=== PATIENT | female | born 1945 | race Caucasian/White ===

== ENCOUNTER 2018-02-23 16:59 | Inpatient (IN) ==
[2018-02-23 17:38] LABS: Basophils % 0.1 % (0.0-0.8); Eosinophils % 0.2 % (0.00-10.9); Hemoglobin 11.1 GM/DL (12.0-16.0); Immature Granulocytes % 0.8 %; Lymphocytes # 2.4 10*3/uL (1.4-4.0); Lymphocytes % 18.1 % (21.3-54.2); Mean Corpuscular HGB Conc 33.6 GM/DL (32-36); Mean Corpuscular Hemoglobin 34 PG (27-34); Mean Corpuscular Volume 100.3 FL (87-102); Mean Platelet Volume 9.6 FL (9.6-12.0); Monocytes % 7.8 % (1.7-12.7); Neutrophils # 9.6 10*3/uL (1.4-7.4); Platelet Count 410 T/CUMM (130-400); Red Blood Count 3.29 MC/CUMM (3.8-5.5); Red Cell Distribution Width 12.2 % (9.3-17.3); White Blood Count 13.1 T/CUMM (4-12)
[2018-02-23 17:57] LABS: Albumin 2.8 G/DL (3.4-5.0); Bilirubin,Total 1.1 MG/DL (0.2-1.0); Calcium 9.9 MG/DL (8.5-10.1); Osmolality,Calculated 288.9 MOS/KG (273-304); Potassium 5.7 MMOL/L (3.5-5.1); Total Protein 7.1 G/DL (6.4-8.3)
[2018-02-23] MEDS ORDERED: cefTRIAXone 1,000 MG in SODIUM CHLORIDE 0.9% 100 ML IV STA (21:47)
[2018-02-23] MEDS ORDERED: FUROSEMIDE 100 MG/10 ML VIAL IV STA (21:47)
[2018-02-23] MEDS ORDERED: ONDANSETRON 4 MG/2 ML VIAL IV STA (21:47)
[2018-02-23] MEDS ORDERED: SODIUM CHLORIDE 0.9% 500 ML IV STA (21:47)
[2018-02-23] MEDS ORDERED: methylPREDNISolone SOD SUC 125 MG/2 ML VIAL IV STA (21:47)
[2018-02-23] MEDS ORDERED: CALCIUM CHLORIDE 1,000 MG/10 ML SYRINGE IV STA (21:50)
[2018-02-23] MEDS ORDERED: ALBUTEROL 2.5 MG/3 ML NEB RESP TX SCH (22:00)
[2018-02-23] MEDS ORDERED: AZITHROMYCIN INJ 500 MG in SODIUM CHLORIDE 0.9% 250 ML IV STA (22:12)
[2018-02-23 22:52] LABS: INR 0.9; PT Patient Result 9.9 SECS
[2018-02-23 23:05] LABS: Troponin I < 0.015 NG/ML (0.00-0.045)
[2018-02-23] MEDS ORDERED: DOXYCYCLINE HYCLATE INJ 100 MG in SODIUM CHLORIDE 0.9% 100 ML IV STA (23:28)
[2018-02-24 03:04] LABS: Apearance,Urine CLEAR (Clear); Bilirubin,Urine Negative (Negative); Blood, Urine Large mg/dL (Negative); Glucose,Urine (UA) Negative (Negative); Ketones,Urine Negative (Negative); Mucus,Urine Occasional /LPF (Occasional); Nitrite,Urine Negative (Negative); Protein,Urine 30 MG/DL; RBC,Urine 4 /HPF (0-4); Squamous Epithelial Cell,Urine Occasional /HPF (0-10); Urine Color Straw (Yellow); Urine Specific Gravity 1.004 (1.001-1.035); Urine Urobilinogen < 2.0 EU/DL (0.2-1.0); WBC,Urine 4 /HPF (0-6)
[2018-02-24] MEDS: HEPARIN 5,000 UNIT/1 ML VIAL SUBCUT SCH (03:37)
[2018-02-24] MEDS: SODIUM CHLORIDE 0.9% 1,000 ML IV SCH ×2 (04:23→15:27)
[2018-02-24] MEDS: cefTRIAXone 2,000 MG in SYRINGE 1 EACH IV SCH (05:15)
[2018-02-24] MEDS: ALBUTEROL/IPRATROPIUM 3 ML NEB RESP TX SCH ×4 (07:50→20:13)
[2018-02-24 08:03] LABS: Calcium 10.5 MG/DL (8.5-10.1); Osmolality,Calculated 301.2 MOS/KG (273-304); Potassium 5.3 MMOL/L (3.5-5.1)
[2018-02-24] MEDS: BENZONATATE 100 MG CAPSULE PO SCH ×3 (08:30→21:18)
[2018-02-24] MEDS ORDERED: SODIUM CHLORIDE 1 GM TABLET PO SCH (09:00)
[2018-02-24] MEDS: PANTOPRAZOLE 40 MG TABLET PO SCH (09:45)
[2018-02-24] MEDS: predniSONE 20 MG TABLET PO SCH ×2 (09:46→21:18)
[2018-02-24] MEDS: CARVEDILOL 3.125 MG TABLET PO SCH ×2 (09:46→21:18)
[2018-02-24 13:22] LABS: Calcium 9.5 MG/DL (8.5-10.1); Osmolality,Calculated 305.2 MOS/KG (273-304); Potassium 5.5 MMOL/L (3.5-5.1)
[2018-02-24] MEDS ORDERED: SODIUM POLYSTYRENE SULFATE 15 GM/60 ML BOTTLE PO STA (15:39)
[2018-02-24 17:41] LABS: Hepatitis A Ab IgM Quant 0.24 Index; Hepatitis A Ab IgM Result Negative (Negative); Hepatitis B Core IgM Quant 0.05 Index; Hepatitis B Core IgM Result Negative (Negative); Hepatitis B Surface Ag Quant < 0.10 Index; Hepatitis B Surface Ag Result Negative (Negative); Hepatitis C Virus Ab Quant 0.09 Index; Hepatitis C Virus Ab Result Negative (Negative)
[2018-02-24] MEDS: DOXYCYCLINE HYCLATE INJ 100 MG in SODIUM CHLORIDE 0.9% 100 ML IV SCH (18:02)
[2018-02-24 18:04] LABS: Apearance,Urine Slightly Hazy (Clear); Bacteria,Urine Occasional /HPF (Few); Bilirubin,Urine Negative (Negative); Blood, Urine Large mg/dL (Negative); Glucose,Urine (UA) 50 mg/dL (Negative); Ketones,Urine Negative (Negative); Nitrite,Urine Negative (Negative); Protein,Urine 30 MG/DL; RBC,Urine 22 /HPF (0-4); Squamous Epithelial Cell,Urine Occasional /HPF (0-10); Urine Color Yellow (Yellow); Urine Specific Gravity 1.009 (1.001-1.035); Urine Urobilinogen < 2.0 EU/DL (0.2-1.0); WBC,Urine 23 /HPF (0-6)
[2018-02-24 18:37] LABS: INR 0.9; Partial Thromboplastin Time 26.7 SECS (0-40)
[2018-02-25] MEDS: SODIUM CHLORIDE 0.9% 1,000 ML IV SCH ×3 (00:53→22:22)
[2018-02-25] MEDS: ACETAMINOPHEN 325 MG TABLET PO PRN (00:53)
[2018-02-25] MEDS ORDERED: PROMETHAZINE 25 MG/1 ML VIAL IM ONE (07:00)
[2018-02-25] MEDS ORDERED: MIDAZOLAM 2 MG/2 ML VIAL ONE (07:03)
[2018-02-25] MEDS: ALBUTEROL/IPRATROPIUM 3 ML NEB RESP TX SCH ×3 (07:10→15:30)
[2018-02-25 07:14] LABS: Albumin 2.4 G/DL (3.4-5.0); Bilirubin,Total 0.5 MG/DL (0.2-1.0); Calcium 9.4 MG/DL (8.5-10.1); Osmolality,Calculated 307.4 MOS/KG (273-304); Potassium 4.4 MMOL/L (3.5-5.1); Total Protein 5.9 G/DL (6.4-8.3)
[2018-02-25] MEDS ORDERED: LIDOCAINE 2% 20 ML VIAL RESP TX ONE (07:30)
[2018-02-25] MEDS ORDERED: MIDAZOLAM 2 MG/2 ML VIAL IV ONE (07:30)
[2018-02-25] MEDS ORDERED: LIDOCAINE 1% 20 ML VIAL MISC INJ ONE (07:30)
[2018-02-25] MEDS: PANTOPRAZOLE 40 MG TABLET PO SCH (10:33)
[2018-02-25] MEDS: CARVEDILOL 3.125 MG TABLET PO SCH ×2 (10:33→21:23)
[2018-02-25] MEDS: predniSONE 20 MG TABLET PO SCH ×2 (10:33→21:23)
[2018-02-25] MEDS: DOXYCYCLINE HYCLATE INJ 100 MG in SODIUM CHLORIDE 0.9% 100 ML IV SCH ×2 (10:34→21:23)
[2018-02-25] MEDS: cefTRIAXone 2,000 MG in SYRINGE 1 EACH IV SCH (10:34)
[2018-02-25] MEDS: BENZONATATE 100 MG CAPSULE PO SCH ×2 (10:34→21:23)
[2018-02-25] MEDS: ALBUTEROL 0.63 MG/3 ML NEB RESP TX SCH ×2 (15:29→19:14)
[2018-02-26] MEDS: ALBUTEROL 0.63 MG/3 ML NEB RESP TX SCH ×4 (00:01→19:04)
[2018-02-26 05:54] LABS: Osmolality,Calculated 307.1 MOS/KG (273-304); Potassium 4.4 MMOL/L (3.5-5.1)
[2018-02-26] MEDS: SODIUM CHLORIDE 0.9% 1,000 ML IV SCH (06:13)
[2018-02-26] MEDS ORDERED: SODIUM CHLORIDE 0.9% 1,000 ML IV SCH (09:31)
[2018-02-26] MEDS: CARVEDILOL 3.125 MG TABLET PO SCH ×2 (09:39→21:15)
[2018-02-26] MEDS: PANTOPRAZOLE 40 MG TABLET PO SCH (09:39)
[2018-02-26] MEDS: predniSONE 20 MG TABLET PO SCH ×2 (09:39→21:14)
[2018-02-26] MEDS: BENZONATATE 100 MG CAPSULE PO SCH ×2 (09:39→21:15)
[2018-02-26] MEDS: HEPARIN 5,000 UNIT/1 ML VIAL SUBCUT SCH ×2 (09:46→21:15)
[2018-02-26] MEDS: cefTRIAXone 2,000 MG in SYRINGE 1 EACH IV SCH (10:27)
[2018-02-26] MEDS: DOXYCYCLINE HYCLATE INJ 100 MG in SODIUM CHLORIDE 0.9% 100 ML IV SCH ×2 (10:37→21:16)
[2018-02-26 13:06] LABS: Myeloperoxidase Antibody > 8.0 U
[2018-02-26 16:56] LABS: Q Fever Phase II IgM <1:16 (<1:16)
[2018-02-27] MEDS: ALBUTEROL 0.63 MG/3 ML NEB RESP TX SCH ×4 (00:09→19:09)
[2018-02-27 04:56] LABS: Basophils % 0.1 % (0.0-0.8); Hematocrit 28.8 VOL% (35.7-47.0); Hemoglobin 9.6 GM/DL (12.0-16.0); Immature Granulocytes % 1.6 %; Immature Granulocytes Absolute 0.22 #; Lymphocytes # 1.6 10*3/uL (1.4-4.0); Lymphocytes % 11.6 % (21.3-54.2); Mean Corpuscular HGB Conc 33.3 GM/DL (32-36); Mean Corpuscular Hemoglobin 34 PG (27-34); Mean Corpuscular Volume 101.1 FL (87-102); Mean Platelet Volume 9.3 FL (9.6-12.0); Monocytes # 0.5 10*3/uL (0.11-0.8); Monocytes % 3.2 % (1.7-12.7); Neutrophils # 11.7 10*3/uL (1.4-7.4); Neutrophils % 83.5 % (38.7-73.9); Platelet Count 379 T/CUMM (130-400); Red Blood Count 2.85 MC/CUMM (3.8-5.5); Red Cell Distribution Width 12.3 % (9.3-17.3)
[2018-02-27 05:41] LABS: Calcium 9.1 MG/DL (8.5-10.1); Potassium 4.5 MMOL/L (3.5-5.1)
[2018-02-27] MEDS: cefTRIAXone 2,000 MG in SYRINGE 1 EACH IV SCH (08:26)
[2018-02-27] MEDS: DOXYCYCLINE HYCLATE INJ 100 MG in SODIUM CHLORIDE 0.9% 100 ML IV SCH ×2 (08:27→21:12)
[2018-02-27] MEDS: HEPARIN 5,000 UNIT/1 ML VIAL SUBCUT SCH ×2 (08:27→20:47)
[2018-02-27] MEDS: BENZONATATE 100 MG CAPSULE PO SCH ×2 (08:29→20:47)
[2018-02-27] MEDS: PANTOPRAZOLE 40 MG TABLET PO SCH (08:30)
[2018-02-27] MEDS: predniSONE 20 MG TABLET PO SCH (08:30)
[2018-02-27] MEDS: CARVEDILOL 3.125 MG TABLET PO SCH (08:30)
[2018-02-27] MEDS: FUROSEMIDE 40 MG TABLET PO SCH (10:38)
[2018-02-27] MEDS: CARVEDILOL 12.5 MG TABLET PO SCH (20:47)
[2018-02-27] MEDS: MELATONIN 3 MG TABLET PO PRN (20:48)
[2018-02-28] MEDS: ALBUTEROL 0.63 MG/3 ML NEB RESP TX SCH ×4 (00:56→20:17)
[2018-02-28 04:53] LABS: Basophils % 0.1 % (0.0-0.8); Eosinophils % 0.1 % (0.00-10.9); Hematocrit 28.1 VOL% (35.7-47.0); Hemoglobin 9.3 GM/DL (12.0-16.0); Immature Granulocytes % 2.3 %; Immature Granulocytes Absolute 0.33 #; Lymphocytes # 2.4 10*3/uL (1.4-4.0); Lymphocytes % 16.4 % (21.3-54.2); Mean Corpuscular HGB Conc 33.1 GM/DL (32-36); Mean Corpuscular Hemoglobin 33 PG (27-34); Mean Corpuscular Volume 100.7 FL (87-102); Mean Platelet Volume 9.4 FL (9.6-12.0); Monocytes # 1.5 10*3/uL (0.11-0.8); Monocytes % 10.6 % (1.7-12.7); NRBC # 0.02 10*3/uL; Neutrophils # 10.3 10*3/uL (1.4-7.4); Neutrophils % 70.5 % (38.7-73.9); Platelet Count 363 T/CUMM (130-400); Red Blood Count 2.79 MC/CUMM (3.8-5.5); Red Cell Distribution Width 12.1 % (9.3-17.3); White Blood Count 14.6 T/CUMM (4-12)
[2018-02-28 05:16] LABS: Calcium 9.2 MG/DL (8.5-10.1); Osmolality,Calculated 304.3 MOS/KG (273-304); Potassium 4.2 MMOL/L (3.5-5.1)
[2018-02-28] MEDS: ACETAMINOPHEN 325 MG TABLET PO PRN ×2 (06:17→23:54)
[2018-02-28] MEDS: cefTRIAXone 2,000 MG in SYRINGE 1 EACH IV SCH (08:43)
[2018-02-28] MEDS: DOXYCYCLINE HYCLATE INJ 100 MG in SODIUM CHLORIDE 0.9% 100 ML IV SCH ×2 (08:44→20:43)
[2018-02-28] MEDS: predniSONE 20 MG TABLET PO SCH (08:45)
[2018-02-28] MEDS: FUROSEMIDE 40 MG TABLET PO SCH (08:45)
[2018-02-28] MEDS: CARVEDILOL 12.5 MG TABLET PO SCH ×2 (08:46→20:43)
[2018-02-28] MEDS: BENZONATATE 100 MG CAPSULE PO SCH ×2 (08:46→20:42)
[2018-02-28] MEDS: PANTOPRAZOLE 40 MG TABLET PO SCH (08:46)
[2018-02-28] MEDS: HEPARIN 5,000 UNIT/1 ML VIAL SUBCUT SCH ×2 (08:53→20:43)
[2018-02-28] MEDS: MELATONIN 3 MG TABLET PO PRN (20:46)
[2018-03-01] MEDS: ALBUTEROL 0.63 MG/3 ML NEB RESP TX SCH ×2 (00:27→07:05)
[2018-03-01] MEDS: ACETAMINOPHEN 325 MG TABLET PO PRN (04:06)
[2018-03-01 04:14] LABS: Basophils % 0.1 % (0.0-0.8); Eosinophils % 0.1 % (0.00-10.9); Hematocrit 27.3 VOL% (35.7-47.0); Hemoglobin 9.5 GM/DL (12.0-16.0); Immature Granulocytes % 2.1 %; Immature Granulocytes Absolute 0.27 #; Lymphocytes # 2.4 10*3/uL (1.4-4.0); Lymphocytes % 18.8 % (21.3-54.2); Mean Corpuscular HGB Conc 34.8 GM/DL (32-36); Mean Corpuscular Hemoglobin 34 PG (27-34); Mean Corpuscular Volume 96.5 FL (87-102); Mean Platelet Volume 9.8 FL (9.6-12.0); Monocytes # 1.1 10*3/uL (0.11-0.8); Monocytes % 8.4 % (1.7-12.7); Neutrophils % 70.5 % (38.7-73.9); Platelet Count 390 T/CUMM (130-400); Red Blood Count 2.83 MC/CUMM (3.8-5.5); Red Cell Distribution Width 12.2 % (9.3-17.3); White Blood Count 12.7 T/CUMM (4-12)
[2018-03-01 04:46] LABS: Calcium 8.6 MG/DL (8.5-10.1); Potassium 4.1 MMOL/L (3.5-5.1)
[2018-03-01] MEDS ORDERED: DOXYCYCLINE HYCLATE 100 MG CAPSULE PO SCH (09:00)
[2018-03-01] MEDS: PANTOPRAZOLE 40 MG TABLET PO SCH (09:18)
[2018-03-01] MEDS: FUROSEMIDE 40 MG TABLET PO SCH (09:18)
[2018-03-01] MEDS: BENZONATATE 100 MG CAPSULE PO SCH (09:18)
[2018-03-01] MEDS: predniSONE 20 MG TABLET PO SCH (09:19)
[2018-03-01] MEDS: CARVEDILOL 12.5 MG TABLET PO SCH (09:19)
[2018-03-01] MEDS: HEPARIN 5,000 UNIT/1 ML VIAL SUBCUT SCH (09:20)
[2018-03-01 12:04] VITALS: BP 138/91
[2018-03-04 12:54] LABS: c-ANCA Negative (Negative); p-ANCA Positive (Negative)
== END 2018-03-01 12:15 | disposition home or self-care (01) | DRG 987 ==
LOC: N.ED 16:59 → SUATTDRO 22:33 → N.EDINP 22:33 → N.2E 02-24 03:55 → N.3W 02-24 03:55 → N.2E 02-24 04:23
PROVIDERS: ADMIT Internal Medicine; ATTEND Internal Medicine

== ENCOUNTER 2018-04-16 17:15 | Inpatient (IN) ==
[2018-04-16] MEDS ORDERED: METOCLOPRAMIDE 10 MG/2 ML VIAL IV STA (18:21)
[2018-04-16] MEDS ORDERED: ONDANSETRON 4 MG/2 ML VIAL IV STA (18:21)
[2018-04-16 18:46] LABS: ABG Base Excess -3.7 MMOL/L (-2.5-2.5); ABG HCO3 21.3 MMOL/L (20-26); ABG Oxygen Saturation 96.7 % (95-100); ABG PCO2 30.6 MM HG (35-48); ABG PH 7.423 (7.35-7.45); ABG PO2 84.2 MM HG (80-95); ABG TCO2 18.2 MMOL/L (23-27)
[2018-04-16 19:29] LABS: Basophils % 0.1 % (0.0-0.8); Eosinophils % 0.2 % (0.00-10.9); Hematocrit 25.7 VOL% (35.7-47.0); Immature Granulocytes % 0.6 %; Immature Granulocytes Absolute 0.06 #; Lymphocytes % 20.2 % (21.3-54.2); Mean Corpuscular Hemoglobin 33 PG (27-34); Mean Corpuscular Volume 94.8 FL (87-102); Mean Platelet Volume 9.4 FL (9.6-12.0); Monocytes # 0.8 10*3/uL (0.11-0.8); Monocytes % 8.1 % (1.7-12.7); Neutrophils % 70.8 % (38.7-73.9); Platelet Count 335 T/CUMM (130-400); Red Blood Count 2.71 MC/CUMM (3.8-5.5); White Blood Count 9.9 T/CUMM (4-12)
[2018-04-16 19:39] LABS: INR 0.9; PT Patient Result 9.4 SECS; Partial Thromboplastin Time 23.5 SECS (0-40)
[2018-04-16 19:52] LABS: Alanine Aminotransferase 19 U/L (13-56); Albumin 2.7 G/DL (3.4-5.0); Alkaline Phosphatase 50 U/L (45-117); Aspartate Amino Transferase 18 U/L (0-37); Bilirubin,Total < 0.39 MG/DL (0.2-1.0); Blood Urea Nitrogen 77 MG/DL (7-18); Calcium 8.4 MG/DL (8.5-10.1); Glucose 116 MG/DL (74-106); Osmolality,Calculated 280.1 MOS/KG (273-304); Potassium 5.1 MMOL/L (3.5-5.1); Sodium 128 MMOL/L (136-145); Total Protein 6.2 G/DL (6.4-8.3); Troponin I < 0.015 NG/ML (0.00-0.045)
[2018-04-16] MEDS ORDERED: ONDANSETRON 4 MG/2 ML VIAL IV PRN (21:56)
[2018-04-16] MEDS ORDERED: SODIUM CHLORIDE 0.9% 1,000 ML IV SCH (21:56)
[2018-04-16 23:11] LABS: Alanine Aminotransferase 18 U/L (13-56); Albumin 2.9 G/DL (3.4-5.0); Alkaline Phosphatase 52 U/L (45-117); Aspartate Amino Transferase 15 U/L (0-37); Bilirubin,Total < 0.39 MG/DL (0.2-1.0); Blood Urea Nitrogen 74 MG/DL (7-18); Calcium 8.9 MG/DL (8.5-10.1); Glucose 103 MG/DL (74-106); Osmolality,Calculated 279.9 MOS/KG (273-304); Potassium 4.6 MMOL/L (3.5-5.1); Sodium 129 MMOL/L (136-145); Total Protein 6.4 G/DL (6.4-8.3)
[2018-04-16] MEDS: FAMOTIDINE 20 MG TABLET PO SCH (23:16)
[2018-04-16] MEDS: CARVEDILOL 6.25 MG TABLET PO SCH (23:16)
[2018-04-16] MEDS: HEPARIN 5,000 UNIT/1 ML VIAL SUBCUT SCH (23:39)
[2018-04-17 04:36] LABS: Apearance,Urine CLEAR (Clear); Bacteria,Urine Occasional /HPF (Few); Bilirubin,Urine Negative (Negative); Blood, Urine Moderate mg/dL (Negative); Glucose,Urine (UA) Negative (Negative); Ketones,Urine Negative (Negative); Mucus,Urine Occasional /LPF (Occasional); Nitrite,Urine Negative (Negative); Protein,Urine 100 MG/DL; RBC,Urine 4 /HPF (0-4); Urine Color Straw (Yellow); Urine Specific Gravity 1.004 (1.001-1.035); Urine Urobilinogen < 2.0 EU/DL (0.2-1.0); WBC,Urine 2 /HPF (0-6)
[2018-04-17 05:18] LABS: Basophils % 0.1 % (0.0-0.8); Eosinophils # 0.1 10*3/uL (0.0-0.87); Eosinophils % 1.3 % (0.00-10.9); Hematocrit 22.2 VOL% (35.7-47.0); Hemoglobin 7.5 GM/DL (12.0-16.0); Immature Granulocytes % 0.6 %; Immature Granulocytes Absolute 0.05 #; Lymphocytes # 2.3 10*3/uL (1.4-4.0); Lymphocytes % 28.2 % (21.3-54.2); Mean Corpuscular HGB Conc 33.8 GM/DL (32-36); Mean Corpuscular Hemoglobin 32 PG (27-34); Mean Corpuscular Volume 95.7 FL (87-102); Mean Platelet Volume 9.8 FL (9.6-12.0); Monocytes # 1.1 10*3/uL (0.11-0.8); Monocytes % 13.3 % (1.7-12.7); Neutrophils # 4.7 10*3/uL (1.4-7.4); Neutrophils % 56.5 % (38.7-73.9); Platelet Count 302 T/CUMM (130-400); Red Blood Count 2.32 MC/CUMM (3.8-5.5); Red Cell Distribution Width 12.2 % (9.3-17.3); White Blood Count 8.3 T/CUMM (4-12)
[2018-04-17] MEDS: HEPARIN 5,000 UNIT/1 ML VIAL SUBCUT SCH (06:56)
[2018-04-17] MEDS: CARVEDILOL 6.25 MG TABLET PO SCH ×3 (08:32→16:01)
[2018-04-17] MEDS: FAMOTIDINE 20 MG TABLET PO SCH ×2 (08:32→20:48)
[2018-04-17] MEDS ORDERED: MAGNESIUM HYDROXIDE SUSP 30 ML UDCUP PO PRN (08:37)
[2018-04-17] MEDS ORDERED: ALUMINUM/MAGNES/SIMETH MAX STR 30 ML UDCUP PO PRN (08:37)
[2018-04-17] MEDS ORDERED: hydrALAZINE 20 MG/1 ML VIAL IV PRN (08:38)
[2018-04-17] MEDS: amLODIPine 5 MG TABLET PO SCH (08:53)
[2018-04-17] MEDS: predniSONE 20 MG TABLET PO SCH (08:53)
[2018-04-17] MEDS ORDERED: ENOXAPARIN 30 MG/0.3 ML SYRINGE SUBCUT SCH (09:00)
[2018-04-17] MEDS ORDERED: predniSONE 10 MG TABLET PO SCH (09:00)
[2018-04-17] MEDS ORDERED: INFLUENZA VIRUS VACCINE 0.5 ML SYRINGE IM ONE (09:00)
[2018-04-17] MEDS: SODIUM BICARB INJ 50 MEQ in DEXTROSE 5% 1,000 ML IV SCH ×2 (13:07→23:53)
[2018-04-17 13:29] LABS: % Iron Saturation 18.6 % (18-50); Ferritin 200.9 ng/ml (8-252)
[2018-04-17 13:38] LABS: Folate 14.6 NG/ML (5.4-24.0)
[2018-04-17] MEDS ORDERED: CYANOCOBALAMIN 1000 MCG/1 ML VIAL IM ONE (14:37)
[2018-04-18 06:23] LABS: Basophils % 0.1 % (0.0-0.8); Eosinophils % 0.4 % (0.00-10.9); Hematocrit 21.8 VOL% (35.7-47.0); Hemoglobin 7.4 GM/DL (12.0-16.0); Immature Granulocytes % 0.7 %; Immature Granulocytes Absolute 0.07 #; Lymphocytes # 2.4 10*3/uL (1.4-4.0); Lymphocytes % 23.2 % (21.3-54.2); Mean Corpuscular HGB Conc 33.9 GM/DL (32-36); Mean Corpuscular Hemoglobin 32 PG (27-34); Mean Corpuscular Volume 94.4 FL (87-102); Mean Platelet Volume 9.7 FL (9.6-12.0); Monocytes # 1.1 10*3/uL (0.11-0.8); Monocytes % 10.7 % (1.7-12.7); Neutrophils # 6.8 10*3/uL (1.4-7.4); Neutrophils % 64.9 % (38.7-73.9); Platelet Count 307 T/CUMM (130-400); Red Blood Count 2.31 MC/CUMM (3.8-5.5); Red Cell Distribution Width 12.1 % (9.3-17.3); White Blood Count 10.5 T/CUMM (4-12)
[2018-04-18 06:40] LABS: Calcium 8.4 MG/DL (8.5-10.1); Osmolality,Calculated 286.4 MOS/KG (273-304); Potassium 4.2 MMOL/L (3.5-5.1)
[2018-04-18 08:11] LABS: Free T4 (Free Thyroxine) 0.83 NG/DL (0.76-1.46); Thyroid Stimulating Hormone 2.07 uIU/ml (0.358-3.74)
[2018-04-18] MEDS ORDERED: MAGNESIUM SULF RIDER 2 GM in PREMIX 1 EACH IV ONE (08:16)
[2018-04-18] MEDS ORDERED: IRON SUCROSE 300 MG in SODIUM CHLORIDE 0.9% 100 ML IV ONE (08:22)
[2018-04-18] MEDS: FAMOTIDINE 20 MG TABLET PO SCH ×3 (08:31→23:43)
[2018-04-18] MEDS: predniSONE 20 MG TABLET PO SCH (08:31)
[2018-04-18] MEDS: amLODIPine 5 MG TABLET PO SCH (08:31)
[2018-04-18] MEDS: ACETAMINOPHEN 325 MG TABLET PO PRN ×2 (08:31→19:49)
[2018-04-18] MEDS: CARVEDILOL 6.25 MG TABLET PO SCH ×2 (08:32→16:01)
[2018-04-18] MEDS: FLUTICASONE 50 MCG NASAL SPRAY 16 GM BOTTLE BOTH NARES SCH (09:18)
[2018-04-18] MEDS ORDERED: EPOETIN ALFA 10,000 UNIT/1 ML VIAL IV ONE (09:29)
[2018-04-18 12:18] LABS: Apearance,Urine CLEAR (Clear); Bacteria,Urine Occasional /HPF (Few); Bilirubin,Urine Negative (Negative); Blood, Urine Moderate mg/dL (Negative); Glucose,Urine (UA) Negative (Negative); Ketones,Urine Negative (Negative); Nitrite,Urine Negative (Negative); Protein,Urine >=500 MG/DL; RBC,Urine 3 /HPF (0-4); Squamous Epithelial Cell,Urine Occasional /HPF (0-10); Transitional Epi Cells,Urine Occasional /HPF (<1); Urine Color Straw (Yellow); Urine Specific Gravity 1.004 (1.001-1.035); Urine Urobilinogen < 2.0 EU/DL (0.2-1.0); WBC,Urine 10 /HPF (0-6)
[2018-04-19] MEDS: ACETAMINOPHEN 325 MG TABLET PO PRN ×2 (03:34→17:18)
[2018-04-19 05:32] LABS: Basophils % 0.1 % (0.0-0.8); Eosinophils % 0.1 % (0.00-10.9); Hemoglobin 7.7 GM/DL (12.0-16.0); Immature Granulocytes % 1.2 %; Immature Granulocytes Absolute 0.15 #; Lymphocytes # 2.7 10*3/uL (1.4-4.0); Lymphocytes % 22.1 % (21.3-54.2); Mean Corpuscular HGB Conc 33.5 GM/DL (32-36); Mean Corpuscular Hemoglobin 32 PG (27-34); Mean Corpuscular Volume 94.3 FL (87-102); Mean Platelet Volume 9.8 FL (9.6-12.0); Monocytes # 1.2 10*3/uL (0.11-0.8); Monocytes % 9.9 % (1.7-12.7); Neutrophils % 66.6 % (38.7-73.9); Platelet Count 328 T/CUMM (130-400); Red Blood Count 2.44 MC/CUMM (3.8-5.5)
[2018-04-19 05:54] LABS: Calcium 8.1 MG/DL (8.5-10.1); Osmolality,Calculated 279.8 MOS/KG (273-304); Potassium 4.3 MMOL/L (3.5-5.1)
[2018-04-19] MEDS: predniSONE 20 MG TABLET PO SCH (09:27)
[2018-04-19] MEDS: amLODIPine 5 MG TABLET PO SCH ×2 (09:28→20:26)
[2018-04-19] MEDS: FAMOTIDINE 20 MG TABLET PO SCH (09:28)
[2018-04-19] MEDS: SODIUM BICARB INJ 50 MEQ in DEXTROSE 5% 1,000 ML IV SCH ×2 (09:28→09:32)
[2018-04-19] MEDS: CARVEDILOL 6.25 MG TABLET PO SCH ×2 (09:28→17:14)
[2018-04-19] MEDS: FLUTICASONE 50 MCG NASAL SPRAY 16 GM BOTTLE BOTH NARES SCH (09:31)
[2018-04-19] MEDS ORDERED: SODIUM CHLORIDE 0.9% 1,000 ML IV PRN (15:50)
[2018-04-19] MEDS: SODIUM CHLORIDE 0.9% 1,000 ML IV SCH (20:08)
[2018-04-19] MEDS: hydrALAZINE 25 MG TABLET PO SCH (20:26)
[2018-04-20 04:57] LABS: Basophils % 0.1 % (0.0-0.8); Eosinophils % 0.1 % (0.00-10.9); Hematocrit 27.4 VOL% (35.7-47.0); Hemoglobin 9.6 GM/DL (12.0-16.0); Immature Granulocytes % 1.3 %; Lymphocytes # 3.3 10*3/uL (1.4-4.0); Lymphocytes % 21.6 % (21.3-54.2); Mean Corpuscular Hemoglobin 32 PG (27-34); Mean Corpuscular Volume 91.9 FL (87-102); Mean Platelet Volume 9.5 FL (9.6-12.0); Monocytes # 1.8 10*3/uL (0.11-0.8); Monocytes % 11.9 % (1.7-12.7); NRBC # 0.02 10*3/uL; Neutrophils # 9.9 10*3/uL (1.4-7.4); Platelet Count 372 T/CUMM (130-400); Red Blood Count 2.98 MC/CUMM (3.8-5.5); Red Cell Distribution Width 12.9 % (9.3-17.3); White Blood Count 15.3 T/CUMM (4-12)
[2018-04-20 05:50] LABS: Calcium 8.7 MG/DL (8.5-10.1); Osmolality,Calculated 270.5 MOS/KG (273-304); Potassium 4.4 MMOL/L (3.5-5.1)
[2018-04-20] MEDS: CARVEDILOL 6.25 MG TABLET PO SCH ×2 (09:46→17:08)
[2018-04-20] MEDS: amLODIPine 5 MG TABLET PO SCH ×2 (09:46→20:55)
[2018-04-20] MEDS: predniSONE 20 MG TABLET PO SCH (09:46)
[2018-04-20] MEDS: FAMOTIDINE 20 MG TABLET PO SCH (09:46)
[2018-04-20] MEDS: hydrALAZINE 25 MG TABLET PO SCH ×3 (09:47→20:55)
[2018-04-20] MEDS: FLUTICASONE 50 MCG NASAL SPRAY 16 GM BOTTLE BOTH NARES SCH (09:49)
[2018-04-20] MEDS: SODIUM CHLORIDE 0.9% 1,000 ML IV SCH ×2 (10:35→15:26)
[2018-04-20] MEDS ORDERED: PANTOPRAZOLE 40 MG TABLET PO ONE (20:00)
[2018-04-20] MEDS: ACETAMINOPHEN 325 MG TABLET PO PRN (20:55)
[2018-04-21] MEDS: BUTALBITAL/ACETAMIN/CAFFEINE 50-325-40 MG TABLET PO PRN (02:18)
[2018-04-21] MEDS: SODIUM CHLORIDE 0.65% NASAL SPRAY 45 ML BOTTLE BOTH NARES PRN (02:19)
[2018-04-21] MEDS: SODIUM CHLORIDE 0.9% 1,000 ML IV SCH ×2 (08:03→08:41)
[2018-04-21] MEDS: predniSONE 20 MG TABLET PO SCH (08:39)
[2018-04-21] MEDS: CARVEDILOL 6.25 MG TABLET PO SCH ×2 (08:39→16:02)
[2018-04-21] MEDS: amLODIPine 5 MG TABLET PO SCH ×2 (08:39→21:09)
[2018-04-21] MEDS: FAMOTIDINE 20 MG TABLET PO SCH (08:39)
[2018-04-21] MEDS: PANTOPRAZOLE 40 MG TABLET PO SCH (08:39)
[2018-04-21] MEDS: FLUTICASONE 50 MCG NASAL SPRAY 16 GM BOTTLE BOTH NARES SCH (08:39)
[2018-04-21] MEDS: hydrALAZINE 25 MG TABLET PO SCH ×3 (08:39→21:09)
[2018-04-21 14:34] LABS: Calcium 8.4 MG/DL (8.5-10.1); Osmolality,Calculated 274.5 MOS/KG (273-304); Potassium 4.5 MMOL/L (3.5-5.1)
[2018-04-21] MEDS: IPRATROPIUM 0.03% NASAL SPRAY 30 ML BOTTLE BOTH NARES SCH (21:09)
[2018-04-21] MEDS: ACETAMINOPHEN 325 MG TABLET PO PRN (21:15)
[2018-04-22] MEDS: BUTALBITAL/ACETAMIN/CAFFEINE 50-325-40 MG TABLET PO PRN ×2 (01:07→06:13)
[2018-04-22 05:12] LABS: Basophils % 0.1 % (0.0-0.8); Eosinophils % 0.1 % (0.00-10.9); Hematocrit 27.5 VOL% (35.7-47.0); Hemoglobin 9.4 GM/DL (12.0-16.0); Immature Granulocytes % 1.5 %; Immature Granulocytes Absolute 0.21 #; Lymphocytes % 22.3 % (21.3-54.2); Mean Corpuscular HGB Conc 34.2 GM/DL (32-36); Mean Corpuscular Hemoglobin 32 PG (27-34); Mean Corpuscular Volume 93.5 FL (87-102); Mean Platelet Volume 9.8 FL (9.6-12.0); Monocytes # 1.5 10*3/uL (0.11-0.8); Monocytes % 10.6 % (1.7-12.7); Neutrophils # 8.9 10*3/uL (1.4-7.4); Neutrophils % 65.4 % (38.7-73.9); Platelet Count 416 T/CUMM (130-400); Red Blood Count 2.94 MC/CUMM (3.8-5.5); Red Cell Distribution Width 13.1 % (9.3-17.3); White Blood Count 13.6 T/CUMM (4-12)
[2018-04-22 05:32] LABS: Calcium 7.7 MG/DL (8.5-10.1); Osmolality,Calculated 268.6 MOS/KG (273-304); Potassium 4.8 MMOL/L (3.5-5.1)
[2018-04-22] MEDS ORDERED: MAGNESIUM SULF RIDER 4 GM in PREMIX 1 EACH IV PRN (08:46)
[2018-04-22] MEDS ORDERED: MAGNESIUM SULF RIDER 2 GM in PREMIX 1 EACH IV PRN (08:46)
[2018-04-22] MEDS: FAMOTIDINE 20 MG TABLET PO SCH (09:05)
[2018-04-22] MEDS: PANTOPRAZOLE 40 MG TABLET PO SCH (09:05)
[2018-04-22] MEDS: predniSONE 20 MG TABLET PO SCH (09:05)
[2018-04-22] MEDS: amLODIPine 5 MG TABLET PO SCH ×2 (09:05→20:56)
[2018-04-22] MEDS: CARVEDILOL 6.25 MG TABLET PO SCH ×2 (09:05→16:01)
[2018-04-22] MEDS: hydrALAZINE 25 MG TABLET PO SCH ×3 (09:05→20:55)
[2018-04-22] MEDS: FLUTICASONE 50 MCG NASAL SPRAY 16 GM BOTTLE BOTH NARES SCH (09:06)
[2018-04-22] MEDS: IPRATROPIUM 0.03% NASAL SPRAY 30 ML BOTTLE BOTH NARES SCH ×2 (09:06→20:55)
[2018-04-22] MEDS: SODIUM CHLORIDE 0.9% 1,000 ML IV SCH (14:28)
[2018-04-23] MEDS: BUTALBITAL/ACETAMIN/CAFFEINE 50-325-40 MG TABLET PO PRN ×2 (01:43→23:39)
[2018-04-23 06:23] LABS: Osmolality,Calculated 275.4 MOS/KG (273-304); Potassium 4.6 MMOL/L (3.5-5.1)
[2018-04-23] MEDS: FAMOTIDINE 20 MG TABLET PO SCH (09:45)
[2018-04-23] MEDS: predniSONE 20 MG TABLET PO SCH (09:46)
[2018-04-23] MEDS: CARVEDILOL 6.25 MG TABLET PO SCH ×2 (09:46→17:24)
[2018-04-23] MEDS: PANTOPRAZOLE 40 MG TABLET PO SCH (09:46)
[2018-04-23] MEDS: amLODIPine 5 MG TABLET PO SCH ×2 (09:46→20:00)
[2018-04-23] MEDS: hydrALAZINE 25 MG TABLET PO SCH ×3 (09:51→20:00)
[2018-04-23] MEDS: FLUTICASONE 50 MCG NASAL SPRAY 16 GM BOTTLE BOTH NARES SCH (09:52)
[2018-04-23] MEDS: IPRATROPIUM 0.03% NASAL SPRAY 30 ML BOTTLE BOTH NARES SCH ×2 (09:52→20:22)
[2018-04-23] MEDS: SODIUM CHLORIDE 0.9% 1,000 ML IV SCH (11:22)
[2018-04-23] MEDS ORDERED: LORazepam 0.5 MG TABLET PO PRN (11:44)
[2018-04-23 14:44] LABS: Apearance,Urine Slightly Hazy (Clear); Bacteria,Urine Occasional /HPF (Few); Bilirubin,Urine Negative (Negative); Blood, Urine Moderate mg/dL (Negative); Glucose,Urine (UA) Negative (Negative); Ketones,Urine Negative (Negative); Nitrite,Urine Negative (Negative); Protein,Urine >=500 MG/DL; RBC,Urine 5 /HPF (0-4); Squamous Epithelial Cell,Urine Occasional /HPF (0-10); Urine Color Straw (Yellow); Urine Specific Gravity 1.005 (1.001-1.035); Urine Urobilinogen < 2.0 EU/DL (0.2-1.0); WBC,Urine 2 /HPF (0-6)
[2018-04-24] MEDS: BUTALBITAL/ACETAMIN/CAFFEINE 50-325-40 MG TABLET PO PRN (05:52)
[2018-04-24] MEDS: SODIUM CHLORIDE 0.9% 1,000 ML IV SCH (05:53)
[2018-04-24] MEDS: CARVEDILOL 6.25 MG TABLET PO SCH ×2 (08:51→16:37)
[2018-04-24] MEDS: hydrALAZINE 25 MG TABLET PO SCH ×3 (08:51→21:24)
[2018-04-24] MEDS: predniSONE 20 MG TABLET PO SCH (08:52)
[2018-04-24] MEDS: PANTOPRAZOLE 40 MG TABLET PO SCH (08:52)
[2018-04-24] MEDS: amLODIPine 5 MG TABLET PO SCH ×2 (08:52→21:24)
[2018-04-24] MEDS: FLUTICASONE 50 MCG NASAL SPRAY 16 GM BOTTLE BOTH NARES SCH (08:57)
[2018-04-24] MEDS: SODIUM CHLORIDE 0.65% NASAL SPRAY 45 ML BOTTLE BOTH NARES PRN (08:57)
[2018-04-24] MEDS ORDERED: RITUXIMAB IV ONE (09:00)
[2018-04-24] MEDS ORDERED: SODIUM CHLORIDE 0.9% IV ONE (09:00)
[2018-04-24] MEDS: FAMOTIDINE 20 MG TABLET PO SCH (09:01)
[2018-04-24] MEDS: IPRATROPIUM 0.03% NASAL SPRAY 30 ML BOTTLE BOTH NARES SCH ×2 (09:01→23:33)
[2018-04-24 12:27] LABS: Calcium 8.4 MG/DL (8.5-10.1); Osmolality,Calculated 284.9 MOS/KG (273-304); Potassium 4.5 MMOL/L (3.5-5.1)
[2018-04-24 16:56] LABS: Myeloperoxidase Antibody > 8.0 U
[2018-04-24] MEDS: ACETAMINOPHEN 325 MG TABLET PO PRN (21:23)
[2018-04-25] MEDS: IPRATROPIUM 0.03% NASAL SPRAY 30 ML BOTTLE BOTH NARES SCH ×3 (00:41→20:41)
[2018-04-25] MEDS: BUTALBITAL/ACETAMIN/CAFFEINE 50-325-40 MG TABLET PO PRN (00:42)
[2018-04-25] MEDS: SODIUM CHLORIDE 0.9% 1,000 ML IV SCH ×2 (03:42→22:53)
[2018-04-25 04:09] LABS: Basophils % 0.2 % (0.0-0.8); Eosinophils % 0.1 % (0.00-10.9); Hemoglobin 9.8 GM/DL (12.0-16.0); Immature Granulocytes Absolute 0.26 #; Mean Corpuscular HGB Conc 33.8 GM/DL (32-36); Mean Corpuscular Hemoglobin 32 PG (27-34); Mean Corpuscular Volume 95.4 FL (87-102); Mean Platelet Volume 9.4 FL (9.6-12.0); Monocytes # 1.3 10*3/uL (0.11-0.8); Monocytes % 9.6 % (1.7-12.7); Neutrophils # 9.6 10*3/uL (1.4-7.4); Neutrophils % 73.1 % (38.7-73.9); Platelet Count 394 T/CUMM (130-400); Red Blood Count 3.04 MC/CUMM (3.8-5.5); Red Cell Distribution Width 13.3 % (9.3-17.3); White Blood Count 13.1 T/CUMM (4-12)
[2018-04-25 04:36] LABS: Calcium 8.1 MG/DL (8.5-10.1); Osmolality,Calculated 282.9 MOS/KG (273-304); Potassium 4.4 MMOL/L (3.5-5.1)
[2018-04-25] MEDS: FAMOTIDINE 20 MG TABLET PO SCH (09:34)
[2018-04-25] MEDS: predniSONE 20 MG TABLET PO SCH (09:34)
[2018-04-25] MEDS: CARVEDILOL 6.25 MG TABLET PO SCH ×2 (09:34→17:16)
[2018-04-25] MEDS: hydrALAZINE 25 MG TABLET PO SCH ×3 (09:34→22:55)
[2018-04-25] MEDS: amLODIPine 5 MG TABLET PO SCH ×2 (09:35→20:43)
[2018-04-25] MEDS: SODIUM CHLORIDE 0.65% NASAL SPRAY 45 ML BOTTLE BOTH NARES PRN (09:35)
[2018-04-25] MEDS: FLUTICASONE 50 MCG NASAL SPRAY 16 GM BOTTLE BOTH NARES SCH (09:35)
[2018-04-25] MEDS: PANTOPRAZOLE 40 MG TABLET PO SCH (09:35)
[2018-04-25] MEDS ORDERED: hydrALAZINE 10 MG TABLET ONE (20:13)
[2018-04-25] MEDS: ZALEPLON 5 MG CAPSULE PO PRN (20:42)
[2018-04-26 02:55] LABS: Basophils % 0.2 % (0.0-0.8); Hematocrit 29.4 VOL% (35.7-47.0); Hemoglobin 9.7 GM/DL (12.0-16.0); Immature Granulocytes % 2.3 %; Immature Granulocytes Absolute 0.26 #; Lymphocytes % 17.8 % (21.3-54.2); Mean Corpuscular Hemoglobin 31 PG (27-34); Mean Corpuscular Volume 94.8 FL (87-102); Mean Platelet Volume 9.5 FL (9.6-12.0); Monocytes # 0.8 10*3/uL (0.11-0.8); Neutrophils # 8.2 10*3/uL (1.4-7.4); Neutrophils % 72.7 % (38.7-73.9); Platelet Count 377 T/CUMM (130-400); Red Cell Distribution Width 13.5 % (9.3-17.3); White Blood Count 11.2 T/CUMM (4-12)
[2018-04-26] MEDS: BUTALBITAL/ACETAMIN/CAFFEINE 50-325-40 MG TABLET PO PRN (03:23)
[2018-04-26 03:29] LABS: Calcium 8.1 MG/DL (8.5-10.1); Osmolality,Calculated 283.2 MOS/KG (273-304); Potassium 4.6 MMOL/L (3.5-5.1)
[2018-04-26] MEDS: CARVEDILOL 6.25 MG TABLET PO SCH ×2 (08:56→16:33)
[2018-04-26] MEDS: FAMOTIDINE 20 MG TABLET PO SCH (08:56)
[2018-04-26] MEDS: predniSONE 20 MG TABLET PO SCH (08:57)
[2018-04-26] MEDS: PANTOPRAZOLE 40 MG TABLET PO SCH (08:57)
[2018-04-26] MEDS: amLODIPine 5 MG TABLET PO SCH ×2 (08:58→20:53)
[2018-04-26] MEDS: hydrALAZINE 25 MG TABLET PO SCH ×3 (08:59→20:53)
[2018-04-26] MEDS: FLUTICASONE 50 MCG NASAL SPRAY 16 GM BOTTLE BOTH NARES SCH (09:00)
[2018-04-26] MEDS: IPRATROPIUM 0.03% NASAL SPRAY 30 ML BOTTLE BOTH NARES SCH ×2 (09:00→20:52)
[2018-04-26] MEDS: ZALEPLON 5 MG CAPSULE PO PRN (23:53)
[2018-04-27] MEDS: BUTALBITAL/ACETAMIN/CAFFEINE 50-325-40 MG TABLET PO PRN (03:41)
[2018-04-27 05:22] LABS: Calcium 8.8 MG/DL (8.5-10.1); Osmolality,Calculated 279.2 MOS/KG (273-304); Potassium 4.7 MMOL/L (3.5-5.1)
[2018-04-27] MEDS: FAMOTIDINE 20 MG TABLET PO SCH (09:47)
[2018-04-27] MEDS: CARVEDILOL 6.25 MG TABLET PO SCH ×2 (09:47→16:28)
[2018-04-27] MEDS: PANTOPRAZOLE 40 MG TABLET PO SCH (09:47)
[2018-04-27] MEDS: hydrALAZINE 25 MG TABLET PO SCH ×3 (09:47→20:56)
[2018-04-27] MEDS: predniSONE 20 MG TABLET PO SCH (09:48)
[2018-04-27] MEDS: FLUTICASONE 50 MCG NASAL SPRAY 16 GM BOTTLE BOTH NARES SCH (09:48)
[2018-04-27] MEDS: amLODIPine 5 MG TABLET PO SCH ×2 (09:48→20:57)
[2018-04-27] MEDS: IPRATROPIUM 0.03% NASAL SPRAY 30 ML BOTTLE BOTH NARES SCH ×2 (09:49→20:59)
[2018-04-27] MEDS: ACETAMINOPHEN 325 MG TABLET PO PRN (20:56)
[2018-04-27] MEDS: ZALEPLON 5 MG CAPSULE PO PRN (20:58)
[2018-04-28] MEDS: BUTALBITAL/ACETAMIN/CAFFEINE 50-325-40 MG TABLET PO PRN ×2 (00:03→23:18)
[2018-04-28 05:32] LABS: Calcium 8.5 MG/DL (8.5-10.1); Osmolality,Calculated 272.8 MOS/KG (273-304); Potassium 5.8 MMOL/L (3.5-5.1)
[2018-04-28] MEDS: CARVEDILOL 6.25 MG TABLET PO SCH ×2 (10:09→17:40)
[2018-04-28] MEDS: FAMOTIDINE 20 MG TABLET PO SCH (10:09)
[2018-04-28] MEDS: predniSONE 20 MG TABLET PO SCH (10:09)
[2018-04-28] MEDS: PANTOPRAZOLE 40 MG TABLET PO SCH (10:09)
[2018-04-28] MEDS: hydrALAZINE 25 MG TABLET PO SCH ×3 (10:09→20:51)
[2018-04-28] MEDS: FLUTICASONE 50 MCG NASAL SPRAY 16 GM BOTTLE BOTH NARES SCH (10:10)
[2018-04-28] MEDS: IPRATROPIUM 0.03% NASAL SPRAY 30 ML BOTTLE BOTH NARES SCH ×2 (10:10→20:53)
[2018-04-28] MEDS: amLODIPine 5 MG TABLET PO SCH ×2 (10:11→20:51)
[2018-04-28 10:29] LABS: Calcium 8.4 MG/DL (8.5-10.1); Osmolality,Calculated 273.8 MOS/KG (273-304); Potassium 5.1 MMOL/L (3.5-5.1)
[2018-04-28] MEDS ORDERED: FUROSEMIDE 80 MG TABLET PO ONE (14:35)
[2018-04-28] MEDS: ZALEPLON 5 MG CAPSULE PO PRN (21:38)
[2018-04-29 05:38] LABS: Calcium 8.3 MG/DL (8.5-10.1); Osmolality,Calculated 272.8 MOS/KG (273-304); Potassium 5.1 MMOL/L (3.5-5.1)
[2018-04-29 08:29] VITALS: BP 157/78
[2018-04-29] MEDS: hydrALAZINE 25 MG TABLET PO SCH (09:22)
[2018-04-29] MEDS: predniSONE 20 MG TABLET PO SCH (09:23)
[2018-04-29] MEDS: amLODIPine 5 MG TABLET PO SCH (09:23)
[2018-04-29] MEDS: CARVEDILOL 6.25 MG TABLET PO SCH (09:23)
[2018-04-29] MEDS: FAMOTIDINE 20 MG TABLET PO SCH (09:24)
[2018-05-07 11:39] LABS: c-ANCA Negative (Negative); p-ANCA Positive (Negative)
== END 2018-04-29 12:16 | disposition home or self-care (01) | DRG 683 ==
LOC: N.ED 17:15 → N.EDINP 20:52 → SUATTDRO 20:52 → N.5E 21:55 → N.4E 04-23 14:59
PROVIDERS: ADMIT Internal Medicine; ATTEND Internal Medicine

== ENCOUNTER 2018-05-03 12:00 | Inpatient (IN) ==
[2018-05-03] MEDS: CARVEDILOL 6.25 MG TABLET PO SCH (17:09)
[2018-05-03] MEDS: hydrALAZINE 25 MG TABLET PO SCH ×2 (17:09→22:08)
[2018-05-03] MEDS: FUROSEMIDE 100 MG/10 ML VIAL IV SCH ×2 (17:09→22:10)
[2018-05-03 17:21] LABS: Hematocrit 34.4 VOL% (35.7-47.0); Hemoglobin 11.8 GM/DL (12.0-16.0); Immature Granulocytes % 0.9 %; Immature Granulocytes Absolute 0.08 #; Lymphocytes % 11.2 % (21.3-54.2); Mean Corpuscular HGB Conc 34.3 GM/DL (32-36); Mean Corpuscular Hemoglobin 32 PG (27-34); Mean Platelet Volume 9.8 FL (9.6-12.0); Monocytes # 0.2 10*3/uL (0.11-0.8); Monocytes % 1.8 % (1.7-12.7); Neutrophils # 7.9 10*3/uL (1.4-7.4); Neutrophils % 86.1 % (38.7-73.9); Platelet Count 310 T/CUMM (130-400); Red Blood Count 3.66 MC/CUMM (3.8-5.5); Red Cell Distribution Width 13.2 % (9.3-17.3); White Blood Count 9.2 T/CUMM (4-12)
[2018-05-03 17:35] LABS: INR 0.9; PT Patient Result 9.6 SECS; Partial Thromboplastin Time 22.5 SECS (0-40)
[2018-05-03 17:40] LABS: Alanine Aminotransferase 48 U/L (13-56); Albumin 2.8 G/DL (3.4-5.0); Alkaline Phosphatase 54 U/L (45-117); Aspartate Amino Transferase 29 U/L (0-37); Bilirubin,Total < 0.39 MG/DL (0.2-1.0); Blood Urea Nitrogen 95 MG/DL (7-18); Calcium 8.9 MG/DL (8.5-10.1); Glucose 137 MG/DL (74-106); Osmolality,Calculated 281.5 MOS/KG (273-304); Potassium 5.9 MMOL/L (3.5-5.1); Sodium 125 MMOL/L (136-145); Total Protein 5.7 G/DL (6.4-8.3)
[2018-05-03] MEDS ORDERED: SODIUM POLYSTYRENE SULFATE 15 GM/60 ML BOTTLE PO STA (17:57)
[2018-05-03 18:41] LABS: Hepatitis A Ab IgM Quant 0.14 Index; Hepatitis A Ab IgM Result Negative (Negative); Hepatitis B Core IgM Quant 0.16 Index; Hepatitis B Core IgM Result Negative (Negative); Hepatitis B Surface Ag Quant 0.25 Index; Hepatitis B Surface Ag Result Negative (Negative); Hepatitis C Virus Ab Quant 0.07 Index; Hepatitis C Virus Ab Result Negative (Negative)
[2018-05-03] MEDS: IPRATROPIUM 0.03% NASAL SPRAY 30 ML BOTTLE BOTH NARES SCH (22:05)
[2018-05-03] MEDS: amLODIPine 5 MG TABLET PO SCH (22:07)
[2018-05-03] MEDS: ZALEPLON 5 MG CAPSULE PO PRN (22:07)
[2018-05-03] MEDS: MELATONIN 3 MG TABLET PO PRN (22:07)
[2018-05-03 23:20] LABS: Apearance,Urine CLEAR (Clear); Bilirubin,Urine Negative (Negative); Blood, Urine Moderate mg/dL (Negative); Glucose,Urine (UA) 50 mg/dL (Negative); Ketones,Urine Negative (Negative); Nitrite,Urine Negative (Negative); Protein,Urine 100 MG/DL; RBC,Urine 9 /HPF (0-4); Squamous Epithelial Cell,Urine Occasional /HPF (0-10); Urine Color Straw (Yellow); Urine Specific Gravity 1.006 (1.001-1.035); Urine Urobilinogen < 2.0 EU/DL (0.2-1.0); WBC,Urine 5 /HPF (0-6)
[2018-05-04] MEDS: BUTALBITAL/ACETAMIN/CAFFEINE 50-325-40 MG TABLET PO PRN ×2 (01:01→20:48)
[2018-05-04] MEDS: FUROSEMIDE 100 MG/10 ML VIAL IV SCH ×4 (03:48→20:50)
[2018-05-04 06:33] LABS: Calcium 8.4 MG/DL (8.5-10.1); Osmolality,Calculated 288.1 MOS/KG (273-304); Potassium 5.3 MMOL/L (3.5-5.1)
[2018-05-04] MEDS ORDERED: ceFAZolin 1,000 MG in SYRINGE 1 EACH IV ONE (07:00)
[2018-05-04] MEDS: CARVEDILOL 6.25 MG TABLET PO SCH ×2 (09:41→17:15)
[2018-05-04] MEDS: hydrALAZINE 25 MG TABLET PO SCH ×3 (09:41→21:01)
[2018-05-04] MEDS: amLODIPine 5 MG TABLET PO SCH ×2 (09:41→20:49)
[2018-05-04] MEDS: predniSONE 20 MG TABLET PO SCH (09:41)
[2018-05-04] MEDS: IPRATROPIUM 0.03% NASAL SPRAY 30 ML BOTTLE BOTH NARES SCH ×2 (09:47→20:46)
[2018-05-04] MEDS: FLUTICASONE 50 MCG NASAL SPRAY 16 GM BOTTLE BOTH NARES SCH (09:47)
[2018-05-04] MEDS ORDERED: BUPIVACAINE MPF 0.25% /EPI 30 ML VIAL ONE (12:21)
[2018-05-04] MEDS ORDERED: LIDOCAINE 1%/EPI INJ 20 ML VIAL ONE (12:21)
[2018-05-04] MEDS ORDERED: HEPARIN 5,000 UNIT/1 ML VIAL ONE (12:23)
[2018-05-04] MEDS ORDERED: PROPOFOL 200 MG/20 ML VIAL IV ONE (13:31)
[2018-05-04] MEDS ORDERED: MIDAZOLAM 2 MG/2 ML VIAL ONE (13:32)
[2018-05-04] MEDS ORDERED: fentaNYL 100 MCG/2 ML VIAL ONE (13:32)
[2018-05-04] MEDS ORDERED: SODIUM CHLORIDE 0.9% 500 ML IV ONE (13:32)
[2018-05-04] MEDS ORDERED: HEPARIN 10,000 UNIT/10 ML VIAL IV PRN (15:20)
[2018-05-04] MEDS: MELATONIN 3 MG TABLET PO PRN (20:47)
[2018-05-04] MEDS: ZALEPLON 5 MG CAPSULE PO PRN (20:50)
[2018-05-05] MEDS: FUROSEMIDE 100 MG/10 ML VIAL IV SCH ×5 (03:56→20:28)
[2018-05-05] MEDS: BUTALBITAL/ACETAMIN/CAFFEINE 50-325-40 MG TABLET PO PRN (04:05)
[2018-05-05 06:16] LABS: Basophils % 0.1 % (0.0-0.8); Eosinophils % 0.1 % (0.00-10.9); Hematocrit 31.5 VOL% (35.7-47.0); Hemoglobin 10.7 GM/DL (12.0-16.0); Immature Granulocytes % 1.8 %; Lymphocytes # 1.3 10*3/uL (1.4-4.0); Mean Corpuscular Hemoglobin 32 PG (27-34); Mean Corpuscular Volume 93.2 FL (87-102); Mean Platelet Volume 9.8 FL (9.6-12.0); Monocytes # 2.2 10*3/uL (0.11-0.8); Monocytes % 13.5 % (1.7-12.7); Neutrophils # 12.5 10*3/uL (1.4-7.4); Neutrophils % 76.5 % (38.7-73.9); Platelet Count 191 T/CUMM (130-400); Red Blood Count 3.38 MC/CUMM (3.8-5.5); Red Cell Distribution Width 13.4 % (9.3-17.3); White Blood Count 16.3 T/CUMM (4-12)
[2018-05-05] MEDS: predniSONE 20 MG TABLET PO SCH ×2 (07:46→09:55)
[2018-05-05] MEDS: CARVEDILOL 6.25 MG TABLET PO SCH ×2 (07:47→17:43)
[2018-05-05] MEDS: hydrALAZINE 25 MG TABLET PO SCH ×4 (07:47→20:25)
[2018-05-05] MEDS: amLODIPine 5 MG TABLET PO SCH ×3 (07:47→20:26)
[2018-05-05] MEDS: IPRATROPIUM 0.03% NASAL SPRAY 30 ML BOTTLE BOTH NARES SCH ×3 (07:48→20:27)
[2018-05-05] MEDS: FLUTICASONE 50 MCG NASAL SPRAY 16 GM BOTTLE BOTH NARES SCH (09:54)
[2018-05-05 12:21] LABS: Osmolality,Calculated 284.7 MOS/KG (273-304); Potassium 4.3 MMOL/L (3.5-5.1)
[2018-05-05] MEDS: MELATONIN 3 MG TABLET PO PRN (20:25)
[2018-05-05] MEDS: ZALEPLON 5 MG CAPSULE PO PRN (20:25)
[2018-05-06] MEDS: FUROSEMIDE 100 MG/10 ML VIAL IV SCH ×4 (03:51→21:19)
[2018-05-06 05:42] LABS: Basophils % 0.1 % (0.0-0.8); Eosinophils % 0.1 % (0.00-10.9); Hematocrit 29.1 VOL% (35.7-47.0); Hemoglobin 9.9 GM/DL (12.0-16.0); Immature Granulocytes % 0.7 %; Immature Granulocytes Absolute 0.09 #; Lymphocytes # 2.3 10*3/uL (1.4-4.0); Lymphocytes % 18.1 % (21.3-54.2); Mean Corpuscular Hemoglobin 32 PG (27-34); Mean Corpuscular Volume 94.5 FL (87-102); Mean Platelet Volume 10.5 FL (9.6-12.0); Monocytes # 1.2 10*3/uL (0.11-0.8); Monocytes % 9.7 % (1.7-12.7); Neutrophils % 71.3 % (38.7-73.9); Platelet Count 154 T/CUMM (130-400); Red Blood Count 3.08 MC/CUMM (3.8-5.5); Red Cell Distribution Width 13.7 % (9.3-17.3); White Blood Count 12.6 T/CUMM (4-12)
[2018-05-06 06:00] LABS: Calcium 8.1 MG/DL (8.5-10.1); Osmolality,Calculated 286.4 MOS/KG (273-304); Potassium 4.3 MMOL/L (3.5-5.1)
[2018-05-06 06:02] LABS: Calcium 8.2 MG/DL (8.5-10.1); Osmolality,Calculated 280.8 MOS/KG (273-304); Potassium 4.3 MMOL/L (3.5-5.1)
[2018-05-06] MEDS: CARVEDILOL 6.25 MG TABLET PO SCH ×2 (10:36→17:11)
[2018-05-06] MEDS: IPRATROPIUM 0.03% NASAL SPRAY 30 ML BOTTLE BOTH NARES SCH ×2 (10:38→21:24)
[2018-05-06] MEDS: FLUTICASONE 50 MCG NASAL SPRAY 16 GM BOTTLE BOTH NARES SCH (10:38)
[2018-05-06] MEDS: hydrALAZINE 25 MG TABLET PO SCH ×3 (10:38→21:18)
[2018-05-06] MEDS: amLODIPine 5 MG TABLET PO SCH ×2 (10:39→21:18)
[2018-05-06] MEDS: predniSONE 20 MG TABLET PO SCH (10:39)
[2018-05-06] MEDS: MELATONIN 3 MG TABLET PO PRN (21:18)
[2018-05-06] MEDS: ZALEPLON 5 MG CAPSULE PO PRN (21:19)
[2018-05-07] MEDS: FUROSEMIDE 100 MG/10 ML VIAL IV SCH ×4 (02:44→20:19)
[2018-05-07 05:29] LABS: Basophils % 0.1 % (0.0-0.8); Eosinophils # 0.1 10*3/uL (0.0-0.87); Eosinophils % 0.5 % (0.00-10.9); Hematocrit 28.7 VOL% (35.7-47.0); Hemoglobin 9.4 GM/DL (12.0-16.0); Immature Granulocytes % 0.5 %; Immature Granulocytes Absolute 0.05 #; Lymphocytes # 2.3 10*3/uL (1.4-4.0); Lymphocytes % 20.9 % (21.3-54.2); Mean Corpuscular HGB Conc 32.8 GM/DL (32-36); Mean Corpuscular Hemoglobin 31 PG (27-34); Mean Corpuscular Volume 95.7 FL (87-102); Mean Platelet Volume 10.5 FL (9.6-12.0); Monocytes # 1.3 10*3/uL (0.11-0.8); Monocytes % 11.9 % (1.7-12.7); Neutrophils # 7.3 10*3/uL (1.4-7.4); Neutrophils % 66.1 % (38.7-73.9); Platelet Count 131 T/CUMM (130-400); Red Cell Distribution Width 13.7 % (9.3-17.3); White Blood Count 11.1 T/CUMM (4-12)
[2018-05-07 05:46] LABS: Calcium 8.2 MG/DL (8.5-10.1); Osmolality,Calculated 283.8 MOS/KG (273-304); Potassium 3.9 MMOL/L (3.5-5.1)
[2018-05-07 05:47] LABS: Calcium 8.2 MG/DL (8.5-10.1); Osmolality,Calculated 286.7 MOS/KG (273-304); Potassium 3.9 MMOL/L (3.5-5.1)
[2018-05-07] MEDS ORDERED: ALTEPLASE 2 MG VIAL IV ONE (10:30)
[2018-05-07] MEDS: hydrALAZINE 25 MG TABLET PO SCH ×3 (13:35→20:19)
[2018-05-07] MEDS: predniSONE 20 MG TABLET PO SCH (13:35)
[2018-05-07] MEDS: CARVEDILOL 6.25 MG TABLET PO SCH ×2 (13:35→16:42)
[2018-05-07] MEDS: amLODIPine 5 MG TABLET PO SCH ×2 (13:35→20:19)
[2018-05-07] MEDS: IPRATROPIUM 0.03% NASAL SPRAY 30 ML BOTTLE BOTH NARES SCH ×2 (13:36→20:19)
[2018-05-07] MEDS: FLUTICASONE 50 MCG NASAL SPRAY 16 GM BOTTLE BOTH NARES SCH (13:36)
[2018-05-08] MEDS: FUROSEMIDE 100 MG/10 ML VIAL IV SCH ×4 (02:49→20:31)
[2018-05-08 04:47] LABS: Calcium 8.1 MG/DL (8.5-10.1); Osmolality,Calculated 282.8 MOS/KG (273-304); Potassium 4.2 MMOL/L (3.5-5.1)
[2018-05-08] MEDS: IPRATROPIUM 0.03% NASAL SPRAY 30 ML BOTTLE BOTH NARES SCH ×2 (08:51→20:31)
[2018-05-08] MEDS: FLUTICASONE 50 MCG NASAL SPRAY 16 GM BOTTLE BOTH NARES SCH (08:51)
[2018-05-08] MEDS: hydrALAZINE 25 MG TABLET PO SCH ×3 (08:54→20:31)
[2018-05-08] MEDS: POLYETHYLENE GLYCOL POWDER 17 GM PACK PO SCH (08:54)
[2018-05-08] MEDS: CARVEDILOL 6.25 MG TABLET PO SCH ×2 (08:54→16:42)
[2018-05-08] MEDS: predniSONE 20 MG TABLET PO SCH (08:54)
[2018-05-08] MEDS: amLODIPine 5 MG TABLET PO SCH ×2 (08:54→20:31)
[2018-05-08] MEDS: ZALEPLON 5 MG CAPSULE PO PRN (20:31)
[2018-05-09] MEDS: FUROSEMIDE 100 MG/10 ML VIAL IV SCH ×4 (02:45→20:24)
[2018-05-09 05:49] LABS: Basophils % 0.1 % (0.0-0.8); Eosinophils % 0.1 % (0.00-10.9); Hematocrit 23.2 VOL% (35.7-47.0); Hemoglobin 7.9 GM/DL (12.0-16.0); Immature Granulocytes % 1.3 %; Immature Granulocytes Absolute 0.16 #; Lymphocytes # 2.2 10*3/uL (1.4-4.0); Lymphocytes % 18.2 % (21.3-54.2); Mean Corpuscular HGB Conc 34.1 GM/DL (32-36); Mean Corpuscular Hemoglobin 33 PG (27-34); Mean Corpuscular Volume 95.9 FL (87-102); Mean Platelet Volume 10.3 FL (9.6-12.0); Monocytes # 0.9 10*3/uL (0.11-0.8); Monocytes % 7.5 % (1.7-12.7); Neutrophils # 8.7 10*3/uL (1.4-7.4); Neutrophils % 72.8 % (38.7-73.9); Platelet Count 154 T/CUMM (130-400); Red Blood Count 2.42 MC/CUMM (3.8-5.5); Red Cell Distribution Width 13.1 % (9.3-17.3)
[2018-05-09 06:14] LABS: Calcium 8.5 MG/DL (8.5-10.1); Osmolality,Calculated 292.8 MOS/KG (273-304); Potassium 4.2 MMOL/L (3.5-5.1)
[2018-05-09] MEDS: CARVEDILOL 6.25 MG TABLET PO SCH ×2 (08:01→17:01)
[2018-05-09] MEDS: amLODIPine 5 MG TABLET PO SCH ×2 (08:01→20:24)
[2018-05-09] MEDS: hydrALAZINE 25 MG TABLET PO SCH ×3 (08:01→20:25)
[2018-05-09] MEDS: predniSONE 20 MG TABLET PO SCH (08:01)
[2018-05-09] MEDS: POLYETHYLENE GLYCOL POWDER 17 GM PACK PO SCH (08:02)
[2018-05-09] MEDS: IPRATROPIUM 0.03% NASAL SPRAY 30 ML BOTTLE BOTH NARES SCH ×2 (08:13→20:25)
[2018-05-09] MEDS: FLUTICASONE 50 MCG NASAL SPRAY 16 GM BOTTLE BOTH NARES SCH (08:13)
[2018-05-09] MEDS: ZALEPLON 5 MG CAPSULE PO PRN (20:25)
[2018-05-10] MEDS: FUROSEMIDE 100 MG/10 ML VIAL IV SCH ×2 (03:00→10:52)
[2018-05-10] MEDS: predniSONE 20 MG TABLET PO SCH (07:54)
[2018-05-10] MEDS: amLODIPine 5 MG TABLET PO SCH (07:55)
[2018-05-10] MEDS: hydrALAZINE 25 MG TABLET PO SCH (07:55)
[2018-05-10] MEDS: POLYETHYLENE GLYCOL POWDER 17 GM PACK PO SCH (07:55)
[2018-05-10] MEDS: CARVEDILOL 6.25 MG TABLET PO SCH (07:57)
[2018-05-10 08:52] LABS: Basophils % 0.1 % (0.0-0.8); Eosinophils # 0.1 10*3/uL (0.0-0.87); Eosinophils % 0.6 % (0.00-10.9); Hematocrit 25.2 VOL% (35.7-47.0); Hemoglobin 8.1 GM/DL (12.0-16.0); Immature Granulocytes % 0.9 %; Immature Granulocytes Absolute 0.09 #; Lymphocytes # 2.2 10*3/uL (1.4-4.0); Lymphocytes % 22.1 % (21.3-54.2); Mean Corpuscular HGB Conc 32.1 GM/DL (32-36); Mean Corpuscular Hemoglobin 32 PG (27-34); Mean Corpuscular Volume 99.2 FL (87-102); Mean Platelet Volume 9.6 FL (9.6-12.0); Monocytes # 0.9 10*3/uL (0.11-0.8); Monocytes % 9.5 % (1.7-12.7); Neutrophils # 6.6 10*3/uL (1.4-7.4); Neutrophils % 66.8 % (38.7-73.9); Platelet Count 177 T/CUMM (130-400); Red Blood Count 2.54 MC/CUMM (3.8-5.5); Red Cell Distribution Width 13.2 % (9.3-17.3); White Blood Count 9.9 T/CUMM (4-12)
[2018-05-10] MEDS: FLUTICASONE 50 MCG NASAL SPRAY 16 GM BOTTLE BOTH NARES SCH (09:05)
[2018-05-10] MEDS: IPRATROPIUM 0.03% NASAL SPRAY 30 ML BOTTLE BOTH NARES SCH (09:05)
[2018-05-10 09:31] LABS: % Iron Saturation 23.5 % (18-50); Calcium 8.4 MG/DL (8.5-10.1); Ferritin 468.2 ng/ml (8-252); Osmolality,Calculated 283.2 MOS/KG (273-304); Potassium 3.6 MMOL/L (3.5-5.1)
[2018-05-10 09:38] LABS: Folate 7.9 NG/ML (5.4-24.0)
[2018-05-10 13:11] VITALS: BP 132/85
== END 2018-05-10 13:08 | disposition home or self-care (01) | DRG 674 ==
LOC: SUATTDRO 12:35 → N.2E 12:35
PROVIDERS: ADMIT Internal Medicine; ATTEND Internal Medicine

== ENCOUNTER 2018-05-30 11:21 | Inpatient (IN) ==
[2018-05-30] MEDS ORDERED: SODIUM CHLORIDE 0.9% 500 ML IV ONE (13:38)
[2018-05-30] MEDS ORDERED: HYDROmorphone 2 MG/1 ML VIAL IV STA (13:38)
[2018-05-30] MEDS ORDERED: ONDANSETRON 4 MG/2 ML VIAL IV STA (13:39)
[2018-05-30 14:42] LABS: Basophils % 0.1 % (0.0-0.8); Eosinophils % 0.1 % (0.00-10.9); Hematocrit 32.7 VOL% (35.7-47.0); Hemoglobin 11.2 GM/DL (12.0-16.0); Immature Granulocytes % 1.6 %; Immature Granulocytes Absolute 0.35 #; Lymphocytes # 2.9 10*3/uL (1.4-4.0); Lymphocytes % 13.3 % (21.3-54.2); Mean Corpuscular HGB Conc 34.3 GM/DL (32-36); Mean Corpuscular Hemoglobin 33 PG (27-34); Mean Corpuscular Volume 95.9 FL (87-102); Mean Platelet Volume 9.9 FL (9.6-12.0); Monocytes # 2.4 10*3/uL (0.11-0.8); Neutrophils # 16.2 10*3/uL (1.4-7.4); Neutrophils % 73.9 % (38.7-73.9); Platelet Count 258 T/CUMM (130-400); Red Blood Count 3.41 MC/CUMM (3.8-5.5); Red Cell Distribution Width 16.1 % (9.3-17.3)
[2018-05-30] MEDS ORDERED: VANCOMYCIN INJ 1,000 MG in SODIUM CHLORIDE 0.9% 250 ML IV STA (14:42)
[2018-05-30] MEDS ORDERED: cefTRIAXone 1,000 MG in SODIUM CHLORIDE 0.9% 100 ML IV STA (14:42)
[2018-05-30 14:51] LABS: INR 0.9; PT Patient Result 9.7 SECS
[2018-05-30 14:58] LABS: Calcium 8.7 MG/DL (8.5-10.1); Osmolality,Calculated 281.2 MOS/KG (273-304); Potassium 3.4 MMOL/L (3.5-5.1)
[2018-05-30] MEDS ORDERED: guaiFENesin/DM ER 600-30 MG TABLET PO PRN (15:16)
[2018-05-30] MEDS ORDERED: ACETAMINOPHEN 325 MG TABLET PO PRN (15:16)
[2018-05-30] MEDS ORDERED: ONDANSETRON 4 MG/2 ML VIAL IV PRN (15:16)
[2018-05-30 17:02] LABS: Lymphocytes 8 % (20-55); Macrocytosis 1+; Platelet Estimate Normal; Polychromasia 1+; Segmented Neutrophils 87 % (50-85); Total Cells Counted 100
[2018-05-30] MEDS ORDERED: INFLUENZA VIRUS VACCINE 0.5 ML SYRINGE IM ONE (17:07)
[2018-05-30] MEDS: SODIUM CHLORIDE 0.9% 1,000 ML IV SCH (18:18)
[2018-05-30] MEDS: MORPHINE 4 MG/1 ML VIAL IV PRN (23:14)
[2018-05-31] MEDS: MORPHINE 4 MG/1 ML VIAL IV PRN ×2 (03:32→07:16)
[2018-05-31 05:23] LABS: Basophils % 0.1 % (0.0-0.8); Eosinophils % 0.1 % (0.00-10.9); Hematocrit 30.3 VOL% (35.7-47.0); Hemoglobin 9.8 GM/DL (12.0-16.0); Immature Granulocytes % 1.2 %; Lymphocytes # 1.6 10*3/uL (1.4-4.0); Lymphocytes % 9.4 % (21.3-54.2); Mean Corpuscular HGB Conc 32.3 GM/DL (32-36); Mean Corpuscular Hemoglobin 32 PG (27-34); Mean Corpuscular Volume 99.7 FL (87-102); Mean Platelet Volume 10.3 FL (9.6-12.0); Monocytes # 1.8 10*3/uL (0.11-0.8); Neutrophils % 78.2 % (38.7-73.9); Platelet Count 226 T/CUMM (130-400); Red Blood Count 3.04 MC/CUMM (3.8-5.5); Red Cell Distribution Width 16.3 % (9.3-17.3); White Blood Count 16.6 T/CUMM (4-12)
[2018-05-31 06:10] LABS: Calcium 8.3 MG/DL (8.5-10.1); Osmolality,Calculated 287.8 MOS/KG (273-304)
[2018-05-31] MEDS ORDERED: ZALEPLON 5 MG CAPSULE PO PRN (07:49)
[2018-05-31] MEDS ORDERED: BUTALBITAL/ACETAMIN/CAFFEINE 50-325-40 MG TABLET PO PRN (07:49)
[2018-05-31] MEDS ORDERED: MELATONIN 3 MG TABLET PO PRN (07:49)
[2018-05-31] MEDS: predniSONE 20 MG TABLET PO SCH (09:00)
[2018-05-31] MEDS: CARVEDILOL 6.25 MG TABLET PO SCH ×2 (09:00→22:55)
[2018-05-31] MEDS: cefTRIAXone 1,000 MG in SYRINGE 1 EACH IV SCH (09:46)
[2018-05-31] MEDS ORDERED: VANCOMYCIN INJ 500 MG in SODIUM CHLORIDE 0.9% 100 ML IV PRN (10:23)
[2018-05-31] MEDS ORDERED: VANCOMYCIN INJ 1,500 MG in SODIUM CHLORIDE 0.9% 500 ML IV ONE (10:30)
[2018-05-31] MEDS ORDERED: MUPIROCIN 2% OINT 22 GM TUBE TOP ONE (12:00)
[2018-05-31] MEDS ORDERED: OXYMETAZOLINE 0.05% NASAL SPRAY 15 ML BOTTLE ONE (12:00)
[2018-05-31] MEDS ORDERED: LIDOCAINE 1%/EPI INJ 20 ML VIAL ONE (12:01)
[2018-05-31] MEDS ORDERED: BACITRACIN 50,000 UNIT VIAL ONE (12:44)
[2018-05-31] MEDS ORDERED: MIDAZOLAM 2 MG/2 ML VIAL ONE (13:39)
[2018-05-31] MEDS ORDERED: PROPOFOL 200 MG/20 ML VIAL IV ONE (13:39)
[2018-05-31] MEDS ORDERED: ONDANSETRON 4 MG/2 ML VIAL ONE (13:40)
[2018-05-31] MEDS ORDERED: SUCCINYLCHOLINE 200 MG/10 ML VIAL ONE (13:40)
[2018-05-31] MEDS ORDERED: ROCURONIUM 100 MG/10 ML VIAL IV ONE (13:40)
[2018-05-31] MEDS ORDERED: HYDROCORTISONE 100 MG VIAL ONE (13:40)
[2018-05-31] MEDS ORDERED: SODIUM CHLORIDE 0.9% 250 ML IV ONE (13:40)
[2018-05-31] MEDS ORDERED: GLYCOPYRROLATE 0.4 MG/2 ML VIAL ONE (13:40)
[2018-05-31] MEDS ORDERED: NEOSTIGMINE 10 MG/10 ML VIAL ONE (13:40)
[2018-05-31] MEDS ORDERED: fentaNYL 100 MCG/2 ML VIAL ONE (13:40)
[2018-05-31] MEDS ORDERED: SEVOFLURANE 1 UNIT/15 MINUTE INH ONE (13:40)
[2018-05-31] MEDS ORDERED: PHENYLEPHRINE 10 MG/1 ML VIAL IV ONE (13:41)
[2018-05-31] MEDS ORDERED: VANCOMYCIN INJ 1,000 MG in SODIUM CHLORIDE 0.9% 250 ML IV SCH (18:00)
[2018-05-31] MEDS: PANTOPRAZOLE 40 MG TABLET PO SCH (18:57)
[2018-05-31] MEDS: MOXIFLOXACIN 0.5% OPH SOLN 3 ML BOTTLE LEFT EYE SCH ×2 (22:54→22:55)
[2018-05-31] MEDS: DEXAMETHASONE 4 MG/1 ML VIAL IV SCH ×2 (22:55→23:13)
[2018-06-01] MEDS: DEXAMETHASONE 4 MG/1 ML VIAL IV SCH ×3 (00:28→18:18)
[2018-06-01] MEDS: SODIUM CHLORIDE 0.9% 1,000 ML IV SCH ×3 (00:29→23:41)
[2018-06-01 06:21] LABS: Basophils % 0.1 % (0.0-0.8); Hemoglobin 8.7 GM/DL (12.0-16.0); Immature Granulocytes % 1.6 %; Immature Granulocytes Absolute 0.23 #; Lymphocytes # 1.1 10*3/uL (1.4-4.0); Lymphocytes % 7.8 % (21.3-54.2); Mean Corpuscular HGB Conc 32.2 GM/DL (32-36); Mean Corpuscular Hemoglobin 32 PG (27-34); Mean Corpuscular Volume 98.5 FL (87-102); Mean Platelet Volume 10.4 FL (9.6-12.0); Monocytes # 0.3 10*3/uL (0.11-0.8); Neutrophils # 12.7 10*3/uL (1.4-7.4); Neutrophils % 88.5 % (38.7-73.9); Platelet Count 245 T/CUMM (130-400); Red Blood Count 2.74 MC/CUMM (3.8-5.5); Red Cell Distribution Width 16.2 % (9.3-17.3); White Blood Count 14.3 T/CUMM (4-12)
[2018-06-01 06:51] LABS: Calcium 8.3 MG/DL (8.5-10.1); Osmolality,Calculated 294.1 MOS/KG (273-304); Potassium 4.6 MMOL/L (3.5-5.1)
[2018-06-01] MEDS: CARVEDILOL 6.25 MG TABLET PO SCH ×2 (09:00→20:29)
[2018-06-01] MEDS: predniSONE 20 MG TABLET PO SCH (09:22)
[2018-06-01] MEDS: PANTOPRAZOLE 40 MG TABLET PO SCH (09:22)
[2018-06-01] MEDS: MOXIFLOXACIN 0.5% OPH SOLN 3 ML BOTTLE LEFT EYE SCH ×3 (09:24→20:29)
[2018-06-01] MEDS: cefTRIAXone 1,000 MG in SYRINGE 1 EACH IV SCH (09:52)
[2018-06-01] MEDS ORDERED: VANCOMYCIN INJ 500 MG in SODIUM CHLORIDE 0.9% 100 ML IV ONE (17:00)
[2018-06-02] MEDS: DEXAMETHASONE 4 MG/1 ML VIAL IV SCH ×2 (02:48→12:08)
[2018-06-02] MEDS: SODIUM CHLORIDE 0.9% 1,000 ML IV SCH ×2 (08:56→18:30)
[2018-06-02] MEDS: PANTOPRAZOLE 40 MG TABLET PO SCH (08:57)
[2018-06-02] MEDS: predniSONE 20 MG TABLET PO SCH (08:57)
[2018-06-02] MEDS: MOXIFLOXACIN 0.5% OPH SOLN 3 ML BOTTLE LEFT EYE SCH ×3 (08:58→21:00)
[2018-06-02] MEDS: CARVEDILOL 6.25 MG TABLET PO SCH ×2 (09:10→21:00)
[2018-06-02] MEDS: cefTRIAXone 1,000 MG in SYRINGE 1 EACH IV SCH (09:10)
[2018-06-02] MEDS ORDERED: LEVOFLOXACIN INJ 750 MG in PREMIX 1 EACH IV ONE (15:00)
[2018-06-03 05:12] LABS: Basophils % 0.1 % (0.0-0.8); Hemoglobin 8.1 GM/DL (12.0-16.0); Immature Granulocytes % 0.9 %; Immature Granulocytes Absolute 0.12 #; Lymphocytes # 1.3 10*3/uL (1.4-4.0); Lymphocytes % 9.7 % (21.3-54.2); Mean Corpuscular HGB Conc 32.4 GM/DL (32-36); Mean Corpuscular Hemoglobin 32 PG (27-34); Mean Corpuscular Volume 97.3 FL (87-102); Monocytes # 1.1 10*3/uL (0.11-0.8); Monocytes % 7.8 % (1.7-12.7); Neutrophils # 11.1 10*3/uL (1.4-7.4); Neutrophils % 81.5 % (38.7-73.9); Platelet Count 261 T/CUMM (130-400); Red Blood Count 2.57 MC/CUMM (3.8-5.5); Red Cell Distribution Width 15.7 % (9.3-17.3); White Blood Count 13.6 T/CUMM (4-12)
[2018-06-03 05:22] LABS: Calcium 8.8 MG/DL (8.5-10.1); Osmolality,Calculated 300.1 MOS/KG (273-304); Potassium 4.5 MMOL/L (3.5-5.1)
[2018-06-03] MEDS: SODIUM CHLORIDE 0.9% 1,000 ML IV SCH (12:22)
[2018-06-03] MEDS: predniSONE 20 MG TABLET PO SCH (12:22)
[2018-06-03] MEDS: PANTOPRAZOLE 40 MG TABLET PO SCH (12:23)
[2018-06-03] MEDS: CARVEDILOL 6.25 MG TABLET PO SCH (12:23)
[2018-06-03] MEDS: MOXIFLOXACIN 0.5% OPH SOLN 3 ML BOTTLE LEFT EYE SCH (12:24)
[2018-06-03] MEDS ORDERED: riTUXimab 660 MG in SODIUM CHLORIDE 0.9% 500 ML IV ONE (12:52)
[2018-06-03 13:56] LABS: Myeloperoxidase Antibody > 8.0 U
[2018-06-03 14:24] VITALS: BP 116/76
[2018-06-04] MEDS ORDERED: LEVOFLOXACIN INJ 500 MG in PREMIX 1 EACH IV SCH (09:00)
[2018-06-09 09:35] LABS: c-ANCA Negative (Negative); p-ANCA Positive (Negative)
== END 2018-06-03 13:53 | disposition home or self-care (01) | DRG 133 ==
LOC: N.ED 11:21 → N.EDINP 15:16 → N.5E 17:03
PROVIDERS: ADMIT Internal Medicine; ATTEND Internal Medicine

== ENCOUNTER 2018-06-28 12:01 | Inpatient (IN) ==
[2018-06-28 13:28] LABS: Basophils % 0.4 % (0.0-0.8); Hemoglobin 9.2 GM/DL (12.0-16.0); Immature Granulocytes % 13.3 %; Immature Granulocytes Absolute 0.34 #; Lymphocytes # 0.6 10*3/uL (1.4-4.0); Lymphocytes % 23.1 % (21.3-54.2); Mean Corpuscular HGB Conc 32.9 GM/DL (32-36); Mean Corpuscular Hemoglobin 34 PG (27-34); Mean Corpuscular Volume 102.2 FL (87-102); Mean Platelet Volume 10.3 FL (9.6-12.0); Monocytes # 0.2 10*3/uL (0.11-0.8); Monocytes % 9.4 % (1.7-12.7); Neutrophils # 1.4 10*3/uL (1.4-7.4); Neutrophils % 53.8 % (38.7-73.9); Platelet Count 195 T/CUMM (130-400); Red Blood Count 2.74 MC/CUMM (3.8-5.5); Red Cell Distribution Width 19.2 % (9.3-17.3); White Blood Count 2.6 T/CUMM (4-12)
[2018-06-28 13:39] LABS: INR 0.9; PT Patient Result 9.9 SECS
[2018-06-28 13:49] LABS: Bilirubin,Total 0.6 MG/DL (0.2-1.0); Calcium 9.1 MG/DL (8.5-10.1); Osmolality,Calculated 308.4 MOS/KG (273-304); Potassium 4.8 MMOL/L (3.5-5.1); Total Protein 4.9 G/DL (6.4-8.3)
[2018-06-28] MEDS ORDERED: PIPERACILLIN/TAZOBACTAM 3,375 MG in SODIUM CHLORIDE 0.9% 100 ML IV STA (14:39)
[2018-06-28] MEDS ORDERED: ALBUTEROL 2.5 MG/3 ML NEB RESP TX STA (14:47)
[2018-06-28] MEDS ORDERED: PROMETHAZINE 25 MG/1 ML VIAL IM PRN (14:51)
[2018-06-28] MEDS ORDERED: ONDANSETRON 4 MG/2 ML VIAL IV PRN (14:51)
[2018-06-28 15:00] LABS: Lactic Acid 1.3 MMOL/L (0.4-2.0)
[2018-06-28 15:05] LABS: Ammonia < 10 UMOL/L (11-32)
[2018-06-28] MEDS ORDERED: VANCOMYCIN INJ 1,000 MG in SODIUM CHLORIDE 0.9% 250 ML IV STA (15:19)
[2018-06-28] MEDS ORDERED: LEVOFLOXACIN INJ 750 MG in PREMIX 1 EACH IV STA (15:19)
[2018-06-28] MEDS ORDERED: SODIUM CHLORIDE 0.9% 500 ML IV STA (15:26)
[2018-06-28 15:40] LABS: Band Neutrophils 24 % (0-10); Lymphocytes 43 % (20-55); Reactive Lymphocytes 2+; Segmented Neutrophils 33 % (50-85); Total Cells Counted 100
[2018-06-28 15:41] LABS: Ovalocytes Few; Polychromasia Few
[2018-06-28] MEDS ORDERED: HYDROmorphone 2 MG/1 ML VIAL ONE (15:58)
[2018-06-28] MEDS ORDERED: HYDROmorphone 2 MG/1 ML VIAL IV ONE (16:00)
[2018-06-28] MEDS ORDERED: ONDANSETRON 4 MG/2 ML VIAL IV ONE (16:00)
[2018-06-28] MEDS ORDERED: ALBUTEROL 2.5 MG/3 ML NEB RESP TX PRN (16:12)
[2018-06-28] MEDS ORDERED: VANCOMYCIN INJ 500 MG in SODIUM CHLORIDE 0.9% 100 ML IV PRN (16:26)
[2018-06-28] MEDS: PANTOPRAZOLE 40 MG TABLET PO SCH (18:28)
[2018-06-28] MEDS ORDERED: VANCOMYCIN INJ 1,250 MG in SODIUM CHLORIDE 0.9% 250 ML IV ONE (20:00)
[2018-06-28] MEDS: ALBUTEROL/IPRATROPIUM 3 ML NEB RESP TX SCH (20:01)
[2018-06-28] MEDS: CARVEDILOL 6.25 MG TABLET PO SCH (20:46)
[2018-06-28] MEDS: FLUTICASONE 50 MCG NASAL SPRAY 16 GM BOTTLE BOTH NARES SCH (20:47)
[2018-06-28] MEDS: FAMOTIDINE 20 MG TABLET PO SCH (20:47)
[2018-06-28] MEDS: FOLIC ACID 1 MG TABLET PO SCH (20:47)
[2018-06-28 22:35] LABS: Hepatitis A Ab IgM Result Negative (Negative); Hepatitis B Core IgM Result Negative (Negative); Hepatitis B Surface Ag Quant 0.11 Index; Hepatitis B Surface Ag Result Negative (Negative); Hepatitis C Virus Ab Quant < 0.02 Index; Hepatitis C Virus Ab Result Negative (Negative)
[2018-06-29] MEDS: ALBUTEROL/IPRATROPIUM 3 ML NEB RESP TX SCH ×4 (01:55→19:09)
[2018-06-29] MEDS: PIPERACILLIN/TAZOBACTAM 3,375 MG in SODIUM CHLORIDE 0.9% 100 ML IV SCH ×2 (02:42→21:20)
[2018-06-29 05:58] LABS: Basophils % 0.4 % (0.0-0.8); Hematocrit 25.9 VOL% (35.7-47.0); Hemoglobin 8.3 GM/DL (12.0-16.0); Immature Granulocytes % 14.4 %; Immature Granulocytes Absolute 0.35 #; Lymphocytes # 0.9 10*3/uL (1.4-4.0); Lymphocytes % 38.3 % (21.3-54.2); Mean Corpuscular Hemoglobin 33 PG (27-34); Mean Corpuscular Volume 103.2 FL (87-102); Mean Platelet Volume 10.1 FL (9.6-12.0); Monocytes # 0.2 10*3/uL (0.11-0.8); Monocytes % 9.1 % (1.7-12.7); NRBC # 0.02 10*3/uL; Neutrophils # 0.9 10*3/uL (1.4-7.4); Neutrophils % 37.8 % (38.7-73.9); Platelet Count 188 T/CUMM (130-400); Red Blood Count 2.51 MC/CUMM (3.8-5.5); Red Cell Distribution Width 18.8 % (9.3-17.3); White Blood Count 2.4 T/CUMM (4-12)
[2018-06-29 06:20] LABS: Albumin 1.6 G/DL (3.4-5.0); Bilirubin,Total 0.7 MG/DL (0.2-1.0); Calcium 9.2 MG/DL (8.5-10.1); Potassium 5.1 MMOL/L (3.5-5.1); Risk Ratio 3.84; Thyroid Stimulating Hormone 1.87 uIU/ml (0.358-3.74); Total Protein 5.5 G/DL (6.4-8.3); VLDL CHOLESTEROL 30.4 MG/DL
[2018-06-29 06:37] LABS: Band Neutrophils 30 % (0-10); Lymphocytes 55 % (20-55); Platelet Estimate Normal; Segmented Neutrophils 9 % (50-85); Total Cells Counted 100
[2018-06-29 06:38] LABS: Anisocytosis 1+; Macrocytosis Slight
[2018-06-29] MEDS: predniSONE 20 MG TABLET PO SCH (08:38)
[2018-06-29] MEDS: CETIRIZINE 10 MG TABLET PO SCH (08:39)
[2018-06-29] MEDS: CARVEDILOL 6.25 MG TABLET PO SCH ×2 (08:39→20:58)
[2018-06-29] MEDS: PANTOPRAZOLE 40 MG TABLET PO SCH (08:39)
[2018-06-29] MEDS: FLUTICASONE 50 MCG NASAL SPRAY 16 GM BOTTLE BOTH NARES SCH ×2 (08:40→21:01)
[2018-06-29] MEDS ORDERED: HEPARIN 10,000 UNIT/10 ML VIAL IV PRN (14:10)
[2018-06-29] MEDS ORDERED: VANCOMYCIN INJ 500 MG in SODIUM CHLORIDE 0.9% 100 ML IV ONE (17:00)
[2018-06-29] MEDS: FAMOTIDINE 20 MG TABLET PO SCH (20:58)
[2018-06-29] MEDS: FOLIC ACID 1 MG TABLET PO SCH (20:58)
[2018-06-29] MEDS: SERTRALINE 25 MG TABLET PO SCH (21:16)
[2018-06-30] MEDS: ALBUTEROL/IPRATROPIUM 3 ML NEB RESP TX SCH ×4 (00:43→19:14)
[2018-06-30 06:24] LABS: Basophils % 0.4 % (0.0-0.8); Eosinophils % 0.9 % (0.00-10.9); Hematocrit 23.3 VOL% (35.7-47.0); Hemoglobin 7.5 GM/DL (12.0-16.0); Immature Granulocytes % 1.7 %; Immature Granulocytes Absolute 0.04 #; Lymphocytes # 1.1 10*3/uL (1.4-4.0); Lymphocytes % 47.4 % (21.3-54.2); Mean Corpuscular HGB Conc 32.2 GM/DL (32-36); Mean Corpuscular Hemoglobin 33 PG (27-34); Mean Corpuscular Volume 102.2 FL (87-102); Mean Platelet Volume 10.7 FL (9.6-12.0); Monocytes # 0.3 10*3/uL (0.11-0.8); Monocytes % 14.5 % (1.7-12.7); Neutrophils # 0.8 10*3/uL (1.4-7.4); Neutrophils % 35.1 % (38.7-73.9); Platelet Count 159 T/CUMM (130-400); Red Blood Count 2.28 MC/CUMM (3.8-5.5); Red Cell Distribution Width 18.6 % (9.3-17.3); White Blood Count 2.3 T/CUMM (4-12)
[2018-06-30 06:37] LABS: Calcium 9.1 MG/DL (8.5-10.1); Osmolality,Calculated 285.1 MOS/KG (273-304); Potassium 4.5 MMOL/L (3.5-5.1)
[2018-06-30] MEDS ORDERED: LIDOCAINE 1%/EPI INJ 20 ML VIAL ONE (06:49)
[2018-06-30] MEDS: CARVEDILOL 6.25 MG TABLET PO SCH ×3 (06:50→21:34)
[2018-06-30 06:57] LABS: Band Neutrophils 2 % (0-10); Eosinophils 1 % (0-10); Lymphocytes 63 % (20-55); Microcytosis 1+; Myelocytes 1 %; Segmented Neutrophils 26 % (50-85); Total Cells Counted 100
[2018-06-30 06:58] LABS: Hypochromasia 2+; Platelet Estimate Adequate
[2018-06-30] MEDS ORDERED: PROPOFOL 200 MG/20 ML VIAL IV ONE (08:11)
[2018-06-30] MEDS ORDERED: ONDANSETRON 4 MG/2 ML VIAL ONE (08:12)
[2018-06-30] MEDS ORDERED: fentaNYL 100 MCG/2 ML VIAL ONE (08:12)
[2018-06-30] MEDS ORDERED: MIDAZOLAM 2 MG/2 ML VIAL ONE (08:12)
[2018-06-30] MEDS: PANTOPRAZOLE 40 MG TABLET PO SCH (09:59)
[2018-06-30] MEDS: predniSONE 20 MG TABLET PO SCH (09:59)
[2018-06-30] MEDS: CETIRIZINE 10 MG TABLET PO SCH (09:59)
[2018-06-30] MEDS: PIPERACILLIN/TAZOBACTAM 3,375 MG in SODIUM CHLORIDE 0.9% 100 ML IV SCH ×2 (09:59→21:34)
[2018-06-30] MEDS: FLUTICASONE 50 MCG NASAL SPRAY 16 GM BOTTLE BOTH NARES SCH ×2 (10:08→21:36)
[2018-06-30] MEDS: SERTRALINE 25 MG TABLET PO SCH (21:34)
[2018-06-30] MEDS: FOLIC ACID 1 MG TABLET PO SCH (21:34)
[2018-06-30] MEDS: FAMOTIDINE 20 MG TABLET PO SCH (21:34)
[2018-07-01] MEDS: ALBUTEROL/IPRATROPIUM 3 ML NEB RESP TX SCH ×4 (00:27→20:19)
[2018-07-01 06:08] LABS: Basophils % 0.4 % (0.0-0.8); Eosinophils % 0.4 % (0.00-10.9); Hematocrit 23.1 VOL% (35.7-47.0); Hemoglobin 7.4 GM/DL (12.0-16.0); Immature Granulocytes Absolute 0.16 #; Lymphocytes # 1.2 10*3/uL (1.4-4.0); Lymphocytes % 44.4 % (21.3-54.2); Mean Corpuscular Hemoglobin 33 PG (27-34); Mean Corpuscular Volume 101.8 FL (87-102); Mean Platelet Volume 10.8 FL (9.6-12.0); Monocytes # 0.4 10*3/uL (0.11-0.8); Monocytes % 13.9 % (1.7-12.7); Neutrophils # 0.9 10*3/uL (1.4-7.4); Neutrophils % 34.9 % (38.7-73.9); Platelet Count 171 T/CUMM (130-400); Red Blood Count 2.27 MC/CUMM (3.8-5.5); Red Cell Distribution Width 17.7 % (9.3-17.3); White Blood Count 2.7 T/CUMM (4-12)
[2018-07-01 06:17] LABS: Albumin 1.2 G/DL (3.4-5.0); Bilirubin,Total 0.6 MG/DL (0.2-1.0); Calcium 9.3 MG/DL (8.5-10.1); Osmolality,Calculated 298.2 MOS/KG (273-304); Potassium 5.2 MMOL/L (3.5-5.1); Total Protein 5.3 G/DL (6.4-8.3)
[2018-07-01 06:45] LABS: Band Neutrophils 4 % (0-10); Lymphocytes 40 % (20-55); Myelocytes 2 %; Nucleated Red Blood Cells 2 (0-5); Segmented Neutrophils 34 % (50-85); Total Cells Counted 100
[2018-07-01 06:46] LABS: Hypochromasia 1+; Microcytosis Slight; Ovalocytes Slight; Platelet Estimate Adequate
[2018-07-01] MEDS ORDERED: SODIUM POLYSTYRENE SULFATE 15 GM/60 ML BOTTLE PO STA (06:47)
[2018-07-01] MEDS: PANTOPRAZOLE 40 MG TABLET PO SCH (08:40)
[2018-07-01] MEDS: CETIRIZINE 10 MG TABLET PO SCH (08:40)
[2018-07-01] MEDS: CARVEDILOL 6.25 MG TABLET PO SCH ×2 (08:40→20:47)
[2018-07-01] MEDS: predniSONE 20 MG TABLET PO SCH (08:40)
[2018-07-01] MEDS: PIPERACILLIN/TAZOBACTAM 3,375 MG in SODIUM CHLORIDE 0.9% 100 ML IV SCH (08:41)
[2018-07-01] MEDS: FLUTICASONE 50 MCG NASAL SPRAY 16 GM BOTTLE BOTH NARES SCH ×2 (08:43→20:50)
[2018-07-01] MEDS ORDERED: SODIUM BICARBONATE 650 MG TABLET PO SCH (09:30)
[2018-07-01] MEDS ORDERED: cefTAZidime 1,000 MG in SYRINGE 1 EACH IV SCH (10:30)
[2018-07-01] MEDS ORDERED: MEROPENEM 1,000 MG in SODIUM CHLORIDE 0.9% 100 ML IV SCH (13:00)
[2018-07-01] MEDS ORDERED: LEVOFLOXACIN INJ 500 MG in PREMIX 1 EACH IV SCH (13:00)
[2018-07-01] MEDS: ARFORMOTEROL 15 MCG/2 ML NEB RESP TX SCH ×2 (13:15→20:19)
[2018-07-01] MEDS: DORNASE ALFA 2.5 MG/2.5 ML VIAL RESP TX SCH ×2 (13:15→20:34)
[2018-07-01] MEDS: LACTOBACILLUS ACIDOPHILUS/BULGARICUS CAPLET PO SCH (13:24)
[2018-07-01] MEDS: SODIUM BICARBONATE 650 MG TABLET PO SCH ×2 (14:04→20:47)
[2018-07-01] MEDS: LIDOCAINE 5% PATCH TRANSDERM SCH (14:04)
[2018-07-01] MEDS: MEROPENEM 500 MG in SODIUM CHLORIDE 0.9% 100 ML IV SCH (15:22)
[2018-07-01] MEDS: FAMOTIDINE 20 MG TABLET PO SCH (20:47)
[2018-07-01] MEDS: SERTRALINE 25 MG TABLET PO SCH (20:47)
[2018-07-01] MEDS: FOLIC ACID 1 MG TABLET PO SCH (20:47)
[2018-07-02] MEDS: ALBUTEROL/IPRATROPIUM 3 ML NEB RESP TX SCH ×4 (01:23→19:50)
[2018-07-02 05:30] LABS: Basophils % 0.2 % (0.0-0.8); Eosinophils % 0.2 % (0.00-10.9); Hematocrit 24.1 VOL% (35.7-47.0); Immature Granulocytes % 7.1 %; Immature Granulocytes Absolute 0.29 #; Lymphocytes # 1.2 10*3/uL (1.4-4.0); Lymphocytes % 28.1 % (21.3-54.2); Mean Corpuscular HGB Conc 33.2 GM/DL (32-36); Mean Corpuscular Hemoglobin 33 PG (27-34); Mean Platelet Volume 10.5 FL (9.6-12.0); Monocytes # 0.6 10*3/uL (0.11-0.8); Monocytes % 15.2 % (1.7-12.7); NRBC # 0.03 10*3/uL; Neutrophils % 49.2 % (38.7-73.9); Platelet Count 196 T/CUMM (130-400); Red Blood Count 2.41 MC/CUMM (3.8-5.5); Red Cell Distribution Width 17.7 % (9.3-17.3); White Blood Count 4.1 T/CUMM (4-12)
[2018-07-02 06:10] LABS: Alanine Aminotransferase 91 U/L (13-56); Albumin 1.2 G/DL (3.4-5.0); Alkaline Phosphatase 134 U/L (45-117); Aspartate Amino Transferase 25 U/L (0-37); Bilirubin,Total < 0.39 MG/DL (0.2-1.0); Blood Urea Nitrogen 96 MG/DL (7-18); Calcium 9.8 MG/DL (8.5-10.1); Glucose 286 MG/DL (74-106); Osmolality,Calculated 305.4 MOS/KG (273-304); Potassium 4.7 MMOL/L (3.5-5.1); Sodium 133 MMOL/L (136-145); Total Protein 5.4 G/DL (6.4-8.3)
[2018-07-02 06:15] LABS: Anisocytosis 2+; Band Neutrophils 9 % (0-10); Hypochromasia 2+; Lymphocytes 29 % (20-55); Macrocytosis 2+; Metamyelocytes 5 %; Microcytosis Slight; Myelocytes 2 %; Nucleated Red Blood Cells 1 (0-5); Ovalocytes Slight; Platelet Estimate Normal; Segmented Neutrophils 43 % (50-85); Total Cells Counted 100
[2018-07-02] MEDS: ARFORMOTEROL 15 MCG/2 ML NEB RESP TX SCH ×2 (07:20→19:50)
[2018-07-02] MEDS: DORNASE ALFA 2.5 MG/2.5 ML VIAL RESP TX SCH ×2 (07:20→19:50)
[2018-07-02] MEDS: PANTOPRAZOLE 40 MG TABLET PO SCH (09:52)
[2018-07-02] MEDS: predniSONE 20 MG TABLET PO SCH (09:52)
[2018-07-02] MEDS: CARVEDILOL 6.25 MG TABLET PO SCH ×2 (09:52→20:36)
[2018-07-02] MEDS: LACTOBACILLUS ACIDOPHILUS/BULGARICUS CAPLET PO SCH (09:52)
[2018-07-02] MEDS: CETIRIZINE 10 MG TABLET PO SCH (09:52)
[2018-07-02] MEDS: SODIUM BICARBONATE 650 MG TABLET PO SCH ×3 (09:52→20:37)
[2018-07-02] MEDS: FLUTICASONE 50 MCG NASAL SPRAY 16 GM BOTTLE BOTH NARES SCH ×2 (09:54→20:37)
[2018-07-02] MEDS: LIDOCAINE 5% PATCH TRANSDERM SCH (14:53)
[2018-07-02] MEDS: MEROPENEM 500 MG in SODIUM CHLORIDE 0.9% 100 ML IV SCH (17:30)
[2018-07-02] MEDS: FOLIC ACID 1 MG TABLET PO SCH (20:36)
[2018-07-02] MEDS: MELATONIN 3 MG TABLET PO PRN (20:36)
[2018-07-02] MEDS: SERTRALINE 25 MG TABLET PO SCH (20:37)
[2018-07-02] MEDS: FAMOTIDINE 20 MG TABLET PO SCH (20:37)
[2018-07-03] MEDS: ALBUTEROL/IPRATROPIUM 3 ML NEB RESP TX SCH ×4 (01:00→19:20)
[2018-07-03 05:42] LABS: Basophils % 0.3 % (0.0-0.8); Eosinophils % 0.1 % (0.00-10.9); Hemoglobin 8.2 GM/DL (12.0-16.0); Immature Granulocytes % 13.1 %; Immature Granulocytes Absolute 0.89 #; Lymphocytes # 1.8 10*3/uL (1.4-4.0); Mean Corpuscular HGB Conc 32.8 GM/DL (32-36); Mean Corpuscular Hemoglobin 33 PG (27-34); Mean Platelet Volume 10.5 FL (9.6-12.0); Monocytes # 0.8 10*3/uL (0.11-0.8); Monocytes % 11.5 % (1.7-12.7); NRBC # 0.07 10*3/uL; Neutrophils # 3.3 10*3/uL (1.4-7.4); Platelet Count 209 T/CUMM (130-400); Red Cell Distribution Width 17.9 % (9.3-17.3); White Blood Count 6.8 T/CUMM (4-12)
[2018-07-03 06:03] LABS: Albumin 1.3 G/DL (3.4-5.0); Bilirubin,Total 0.7 MG/DL (0.2-1.0); Calcium 9.9 MG/DL (8.5-10.1); Osmolality,Calculated 312.2 MOS/KG (273-304); Potassium 4.6 MMOL/L (3.5-5.1); Total Protein 5.4 G/DL (6.4-8.3)
[2018-07-03] MEDS ORDERED: HEPARIN 5,000 UNIT/1 ML VIAL ONE (06:34)
[2018-07-03] MEDS ORDERED: LIDOCAINE 1%/EPI INJ 20 ML VIAL ONE (06:34)
[2018-07-03 06:40] LABS: Band Neutrophils 4 % (0-10); Lymphocytes 29 % (20-55); Metamyelocytes 1 %; Myelocytes 1 %; Segmented Neutrophils 54 % (50-85)
[2018-07-03 06:41] LABS: Hypochromasia 1+; Platelet Estimate Normal; Polychromasia Few
[2018-07-03 06:42] LABS: Ovalocytes 1+
[2018-07-03 06:43] LABS: Tear Drop Cells Few; Total Cells Counted 100
[2018-07-03] MEDS: ARFORMOTEROL 15 MCG/2 ML NEB RESP TX SCH ×2 (07:58→19:20)
[2018-07-03] MEDS ORDERED: MIDAZOLAM 2 MG/2 ML VIAL ONE (07:58)
[2018-07-03] MEDS ORDERED: fentaNYL 100 MCG/2 ML VIAL ONE (07:58)
[2018-07-03] MEDS: DORNASE ALFA 2.5 MG/2.5 ML VIAL RESP TX SCH ×2 (07:58→19:20)
[2018-07-03] MEDS: LIDOCAINE 5% PATCH TRANSDERM SCH (09:00)
[2018-07-03] MEDS: SODIUM BICARBONATE 650 MG TABLET PO SCH ×3 (09:00→21:57)
[2018-07-03] MEDS: LACTOBACILLUS ACIDOPHILUS/BULGARICUS CAPLET PO SCH (09:00)
[2018-07-03] MEDS: CARVEDILOL 6.25 MG TABLET PO SCH ×2 (09:00→21:57)
[2018-07-03] MEDS ORDERED: LEVOFLOXACIN 500 MG TABLET PO SCH (09:00)
[2018-07-03] MEDS: FLUTICASONE 50 MCG NASAL SPRAY 16 GM BOTTLE BOTH NARES SCH ×2 (13:40→21:57)
[2018-07-03 14:47] LABS: ABG Base Excess 5.8 MMOL/L (-2.5-2.5); ABG HCO3 27.1 MMOL/L (20-26); ABG Oxygen Saturation 90.7 % (95-100); ABG PH 7.588 (7.35-7.45); ABG PO2 58.2 MM HG (80-95)
[2018-07-03] MEDS: CETIRIZINE 10 MG TABLET PO SCH (16:14)
[2018-07-03] MEDS: predniSONE 20 MG TABLET PO SCH (16:14)
[2018-07-03] MEDS: PANTOPRAZOLE 40 MG TABLET PO SCH (16:14)
[2018-07-03] MEDS: LEVOFLOXACIN INJ 500 MG in PREMIX 1 EACH IV SCH (16:15)
[2018-07-03] MEDS ORDERED: VANCOMYCIN INJ 1,000 MG in SODIUM CHLORIDE 0.9% 250 ML IV ONE (16:37)
[2018-07-03] MEDS: ACETAMINOPHEN 325 MG TABLET PO PRN (17:28)
[2018-07-03] MEDS: MEROPENEM 500 MG in SODIUM CHLORIDE 0.9% 100 ML IV SCH (18:51)
[2018-07-03] MEDS: FAMOTIDINE 20 MG TABLET PO SCH (21:57)
[2018-07-03] MEDS: FOLIC ACID 1 MG TABLET PO SCH (21:57)
[2018-07-03] MEDS: SERTRALINE 25 MG TABLET PO SCH (21:57)
[2018-07-04] MEDS: ALBUTEROL/IPRATROPIUM 3 ML NEB RESP TX SCH ×4 (00:18→19:58)
[2018-07-04 05:02] LABS: Basophils # 0.1 10*3/uL (0.0-0.2); Basophils % 0.4 % (0.0-0.8); Hematocrit 26.1 VOL% (35.7-47.0); Hemoglobin 8.5 GM/DL (12.0-16.0); Immature Granulocytes % 22.1 %; Immature Granulocytes Absolute 2.51 #; Lymphocytes # 1.8 10*3/uL (1.4-4.0); Lymphocytes % 15.4 % (21.3-54.2); Mean Corpuscular HGB Conc 32.6 GM/DL (32-36); Mean Corpuscular Hemoglobin 33 PG (27-34); Mean Platelet Volume 10.2 FL (9.6-12.0); Monocytes # 0.7 10*3/uL (0.11-0.8); NRBC # 0.08 10*3/uL; Neutrophils # 6.4 10*3/uL (1.4-7.4); Neutrophils % 56.1 % (38.7-73.9); Platelet Count 219 T/CUMM (130-400); Red Blood Count 2.61 MC/CUMM (3.8-5.5); Red Cell Distribution Width 18.5 % (9.3-17.3); White Blood Count 11.4 T/CUMM (4-12)
[2018-07-04 05:32] LABS: Albumin 1.3 G/DL (3.4-5.0); Bilirubin,Total 0.6 MG/DL (0.2-1.0); Calcium 8.9 MG/DL (8.5-10.1); Osmolality,Calculated 294.2 MOS/KG (273-304); Potassium 4.4 MMOL/L (3.5-5.1); Total Protein 5.1 G/DL (6.4-8.3)
[2018-07-04 05:34] LABS: Band Neutrophils 5 % (0-10); Lymphocytes 23 % (20-55); Metamyelocytes 2 %; Platelet Estimate Normal; Segmented Neutrophils 57 % (50-85); Total Cells Counted 100
[2018-07-04 05:35] LABS: Anisocytosis 1+; Macrocytosis 1+
[2018-07-04] MEDS: ARFORMOTEROL 15 MCG/2 ML NEB RESP TX SCH ×2 (07:08→19:58)
[2018-07-04] MEDS: DORNASE ALFA 2.5 MG/2.5 ML VIAL RESP TX SCH ×2 (07:19→19:58)
[2018-07-04] MEDS: LACTOBACILLUS ACIDOPHILUS/BULGARICUS CAPLET PO SCH (08:34)
[2018-07-04] MEDS: SODIUM BICARBONATE 650 MG TABLET PO SCH ×3 (08:34→20:21)
[2018-07-04] MEDS: CETIRIZINE 10 MG TABLET PO SCH (08:35)
[2018-07-04] MEDS: CARVEDILOL 6.25 MG TABLET PO SCH ×2 (08:35→20:22)
[2018-07-04] MEDS: predniSONE 20 MG TABLET PO SCH (08:35)
[2018-07-04] MEDS: LIDOCAINE 5% PATCH TRANSDERM SCH (08:35)
[2018-07-04] MEDS: PANTOPRAZOLE 40 MG TABLET PO SCH (08:35)
[2018-07-04] MEDS: FLUTICASONE 50 MCG NASAL SPRAY 16 GM BOTTLE BOTH NARES SCH ×2 (08:36→20:23)
[2018-07-04] MEDS ORDERED: DEXTROSE 50% 25 GM/50 ML VIAL IV PRN (10:20)
[2018-07-04] MEDS ORDERED: GLUCAGON 1 MG VIAL IM PRN (10:20)
[2018-07-04] MEDS: INSULIN LISPRO 100 UNIT/ML SUBCUT SCH ×3 (12:00→20:25)
[2018-07-04] MEDS: ACETAMINOPHEN 325 MG TABLET PO PRN (12:02)
[2018-07-04] MEDS: MEROPENEM 500 MG in SODIUM CHLORIDE 0.9% 100 ML IV SCH (16:46)
[2018-07-04] MEDS: FAMOTIDINE 20 MG TABLET PO SCH (20:22)
[2018-07-04] MEDS: FOLIC ACID 1 MG TABLET PO SCH (20:22)
[2018-07-04] MEDS: SERTRALINE 25 MG TABLET PO SCH (20:22)
[2018-07-05] MEDS: ALBUTEROL/IPRATROPIUM 3 ML NEB RESP TX SCH ×4 (00:57→19:26)
[2018-07-05 06:14] LABS: Basophils % 0.4 % (0.0-0.8); Eosinophils % 0.2 % (0.00-10.9); Hematocrit 23.2 VOL% (35.7-47.0); Hemoglobin 7.5 GM/DL (12.0-16.0); Immature Granulocytes % 23.9 %; Immature Granulocytes Absolute 2.62 #; Lymphocytes % 18.1 % (21.3-54.2); Mean Corpuscular HGB Conc 32.3 GM/DL (32-36); Mean Corpuscular Hemoglobin 33 PG (27-34); Mean Corpuscular Volume 100.9 FL (87-102); Mean Platelet Volume 10.4 FL (9.6-12.0); Monocytes # 0.9 10*3/uL (0.11-0.8); NRBC # 0.06 10*3/uL; Neutrophils # 5.4 10*3/uL (1.4-7.4); Neutrophils % 49.4 % (38.7-73.9); Platelet Count 194 T/CUMM (130-400)
[2018-07-05 06:31] LABS: Albumin 1.3 G/DL (3.4-5.0); Bilirubin,Total 0.4 MG/DL (0.2-1.0); Osmolality,Calculated 303.8 MOS/KG (273-304); Potassium 4.2 MMOL/L (3.5-5.1); Total Protein 4.6 G/DL (6.4-8.3)
[2018-07-05 06:40] LABS: Band Neutrophils 8 % (0-10); Eosinophils 1 % (0-10); Lymphocytes 22 % (20-55); Myelocytes 2 %; Nucleated Red Blood Cells 1 (0-5); Segmented Neutrophils 59 % (50-85); Total Cells Counted 100
[2018-07-05 06:41] LABS: Hypochromasia 1+; Macrocytosis Slight; Ovalocytes Slight; Platelet Estimate Adequate
[2018-07-05] MEDS: DORNASE ALFA 2.5 MG/2.5 ML VIAL RESP TX SCH ×2 (07:28→19:36)
[2018-07-05] MEDS: ARFORMOTEROL 15 MCG/2 ML NEB RESP TX SCH ×2 (07:28→19:26)
[2018-07-05] MEDS ORDERED: SODIUM CHLORIDE 0.9% 1,000 ML IV PRN (08:23)
[2018-07-05] MEDS: CETIRIZINE 10 MG TABLET PO SCH (08:26)
[2018-07-05] MEDS: PANTOPRAZOLE 40 MG TABLET PO SCH (08:26)
[2018-07-05] MEDS: predniSONE 20 MG TABLET PO SCH (08:26)
[2018-07-05] MEDS: LACTOBACILLUS ACIDOPHILUS/BULGARICUS CAPLET PO SCH (08:26)
[2018-07-05] MEDS: SODIUM BICARBONATE 650 MG TABLET PO SCH ×3 (08:26→21:50)
[2018-07-05] MEDS: CARVEDILOL 6.25 MG TABLET PO SCH ×2 (08:26→21:50)
[2018-07-05] MEDS: LIDOCAINE 5% PATCH TRANSDERM SCH (08:27)
[2018-07-05] MEDS: LEVOFLOXACIN INJ 500 MG in PREMIX 1 EACH IV SCH (08:28)
[2018-07-05] MEDS: INSULIN LISPRO 100 UNIT/ML SUBCUT SCH ×4 (08:28→22:50)
[2018-07-05] MEDS: FLUTICASONE 50 MCG NASAL SPRAY 16 GM BOTTLE BOTH NARES SCH ×2 (08:28→21:50)
[2018-07-05] MEDS: MEROPENEM 500 MG in SODIUM CHLORIDE 0.9% 100 ML IV SCH (16:26)
[2018-07-05] MEDS: ACETAMINOPHEN 325 MG TABLET PO PRN (18:03)
[2018-07-05] MEDS: FAMOTIDINE 20 MG TABLET PO SCH (21:50)
[2018-07-05] MEDS: FOLIC ACID 1 MG TABLET PO SCH (21:50)
[2018-07-05] MEDS: SERTRALINE 25 MG TABLET PO SCH (21:50)
[2018-07-05] MEDS: MELATONIN 3 MG TABLET PO PRN (22:48)
[2018-07-06] MEDS: ALBUTEROL/IPRATROPIUM 3 ML NEB RESP TX SCH ×2 (01:16→07:53)
[2018-07-06 06:19] LABS: Basophils # 0.1 10*3/uL (0.0-0.2); Basophils % 0.5 % (0.0-0.8); Eosinophils # 0.1 10*3/uL (0.0-0.87); Eosinophils % 0.5 % (0.00-10.9); Hematocrit 28.8 VOL% (35.7-47.0); Immature Granulocytes % 18.8 %; Immature Granulocytes Absolute 2.86 #; Lymphocytes # 2.5 10*3/uL (1.4-4.0); Lymphocytes % 16.3 % (21.3-54.2); Mean Corpuscular HGB Conc 32.6 GM/DL (32-36); Mean Corpuscular Hemoglobin 33 PG (27-34); Mean Platelet Volume 10.5 FL (9.6-12.0); Monocytes # 1.2 10*3/uL (0.11-0.8); Monocytes % 7.8 % (1.7-12.7); NRBC # 0.05 10*3/uL; Neutrophils # 8.5 10*3/uL (1.4-7.4); Neutrophils % 56.1 % (38.7-73.9); Platelet Count 184 T/CUMM (130-400); Red Cell Distribution Width 17.7 % (9.3-17.3)
[2018-07-06 06:32] LABS: Hemoglobin 9.4 GM/DL (12.0-16.0); Red Blood Count 2.88 MC/CUMM (3.8-5.5); White Blood Count 15.2 T/CUMM (4-12)
[2018-07-06 06:45] LABS: Albumin 1.5 G/DL (3.4-5.0); Bilirubin,Total 0.5 MG/DL (0.2-1.0); Calcium 8.5 MG/DL (8.5-10.1); Osmolality,Calculated 289.5 MOS/KG (273-304); Potassium 3.9 MMOL/L (3.5-5.1); Total Protein 4.6 G/DL (6.4-8.3)
[2018-07-06 06:54] LABS: Band Neutrophils 2 % (0-10); Eosinophils 1 % (0-10); Hypochromasia 1+; Lymphocytes 13 % (20-55); Macrocytosis Slight; Platelet Estimate Adequate; Segmented Neutrophils 77 % (50-85); Total Cells Counted 100
[2018-07-06] MEDS: ARFORMOTEROL 15 MCG/2 ML NEB RESP TX SCH (07:57)
[2018-07-06] MEDS: DORNASE ALFA 2.5 MG/2.5 ML VIAL RESP TX SCH (07:57)
[2018-07-06 08:21] VITALS: BP 138/80
[2018-07-06] MEDS ORDERED: predniSONE 5 MG TABLET PO SCH (08:57)
[2018-07-06] MEDS: LACTOBACILLUS ACIDOPHILUS/BULGARICUS CAPLET PO SCH (09:17)
[2018-07-06] MEDS: CETIRIZINE 10 MG TABLET PO SCH (09:18)
[2018-07-06] MEDS: CARVEDILOL 6.25 MG TABLET PO SCH (09:18)
[2018-07-06] MEDS: FLUTICASONE 50 MCG NASAL SPRAY 16 GM BOTTLE BOTH NARES SCH (09:18)
[2018-07-06] MEDS: PANTOPRAZOLE 40 MG TABLET PO SCH (09:18)
[2018-07-06] MEDS: SODIUM BICARBONATE 650 MG TABLET PO SCH (09:18)
[2018-07-06] MEDS: INSULIN LISPRO 100 UNIT/ML SUBCUT SCH ×2 (09:18→12:00)
[2018-07-06] MEDS: LIDOCAINE 5% PATCH TRANSDERM SCH (09:18)
[2018-07-06] MEDS ORDERED: ZALEPLON 5 MG CAPSULE PO PRN (12:30)
[2018-07-06 14:51] LABS: Myeloperoxidase Antibody 5.1 U
[2018-07-14 11:58] LABS: c-ANCA Negative (Negative); p-ANCA Positive (Negative)
== END 2018-07-06 12:10 | disposition home health service (06) | DRG 314 ==
LOC: N.ED 12:01 → N.EDINP 12:01 → N.5E 16:19 → SUATTDRO 06-29 09:44
PROVIDERS: ADMIT Internal Medicine; ATTEND Internal Medicine

== ENCOUNTER 2018-07-13 11:08 | Inpatient (IN) ==
[2018-07-13 12:37] LABS: Basophils % 0.1 % (0.0-0.8); Eosinophils # 0.1 10*3/uL (0.0-0.87); Eosinophils % 0.2 % (0.00-10.9); Hematocrit 25.4 VOL% (35.7-47.0); Hemoglobin 8.2 GM/DL (12.0-16.0); Immature Granulocytes % 3.1 %; Immature Granulocytes Absolute 0.83 #; Lymphocytes # 3.2 10*3/uL (1.4-4.0); Mean Corpuscular HGB Conc 32.3 GM/DL (32-36); Mean Corpuscular Hemoglobin 33 PG (27-34); Mean Platelet Volume 9.9 FL (9.6-12.0); Monocytes # 1.5 10*3/uL (0.11-0.8); Monocytes % 5.6 % (1.7-12.7); NRBC # 0.05 10*3/uL; Neutrophils # 20.9 10*3/uL (1.4-7.4); Platelet Count 241 T/CUMM (130-400); Red Blood Count 2.49 MC/CUMM (3.8-5.5); Red Cell Distribution Width 17.2 % (9.3-17.3); White Blood Count 26.5 T/CUMM (4-12)
[2018-07-13 12:45] LABS: PT Patient Result 10.8 SECS; Partial Thromboplastin Time 30.3 SECS (0-40)
[2018-07-13 13:01] LABS: Alanine Aminotransferase 35 U/L (13-56); Albumin 1.6 G/DL (3.4-5.0); Alkaline Phosphatase 119 U/L (45-117); Aspartate Amino Transferase 19 U/L (0-37); Bilirubin,Total < 0.39 MG/DL (0.2-1.0); Blood Urea Nitrogen 36 MG/DL (7-18); Calcium 8.7 MG/DL (8.5-10.1); Glucose 156 MG/DL (74-106); Osmolality,Calculated 283.8 MOS/KG (273-304); Potassium 3.9 MMOL/L (3.5-5.1); Sodium 137 MMOL/L (136-145); Total Protein 4.4 G/DL (6.4-8.3)
[2018-07-13] MEDS ORDERED: PIPERACILLIN/TAZOBACTAM 3,375 MG in SODIUM CHLORIDE 0.9% 100 ML IV STA (13:06)
[2018-07-13 13:31] LABS: Apearance,Urine Slightly Hazy (Clear); Bilirubin,Urine Negative (Negative); Blood, Urine Moderate mg/dL (Negative); Glucose,Urine (UA) Negative (Negative); Hyaline Casts,Urine 7 /LPF (0-3); Ketones,Urine Negative (Negative); Nitrite,Urine Negative (Negative); Protein,Urine >=500 MG/DL; RBC,Urine 52 /HPF (0-4); Squamous Epithelial Cell,Urine Occasional /HPF (0-10); Urine Color Amber (Yellow); Urine Specific Gravity 1.015 (1.001-1.035); Urine Urobilinogen < 2.0 EU/DL (0.2-1.0); WBC,Urine 13 /HPF (0-6)
[2018-07-13] MEDS ORDERED: PROMETHAZINE 25 MG TABLET PO PRN (14:06)
[2018-07-13] MEDS ORDERED: MORPHINE 4 MG/1 ML VIAL IV PRN (14:06)
[2018-07-13] MEDS ORDERED: ACETAMINOPHEN 325 MG TABLET PO PRN (14:06)
[2018-07-13 14:52] LABS: Albumin 1.7 G/DL (3.4-5.0); Total Protein 4.8 G/DL (6.4-8.3)
[2018-07-13] MEDS ORDERED: VANCOMYCIN INJ 1,000 MG in SODIUM CHLORIDE 0.9% 250 ML IV STA (15:33)
[2018-07-13] MEDS ORDERED: HEPARIN 10,000 UNIT/10 ML VIAL IV SCH (16:51)
[2018-07-13 16:57] LABS: RBC,Pleural Fluid 3388 T/CUMM
[2018-07-13 17:01] LABS: Lymphocytes,Pleural Fluid 6 %; Monocytes,Pleural Fluid 9 %; Neutrophils,Pleural Fluid 85 %
[2018-07-13 17:19] LABS: Lymphocytes 8 % (20-55); Segmented Neutrophils 88 % (50-85); Total Cells Counted 100
[2018-07-13 17:20] LABS: Anisocytosis 1+; Macrocytosis Slight
[2018-07-13 17:21] LABS: Spherocytes Slight
[2018-07-13 17:22] LABS: Platelet Estimate Normal
[2018-07-13] MEDS ORDERED: VANCOMYCIN INJ 500 MG in SODIUM CHLORIDE 0.9% 100 ML IV PRN (18:38)
[2018-07-13] MEDS: DEXTROSE 5% IV SCH (18:44)
[2018-07-13] MEDS: SULFAMETH IV SCH (18:44)
[2018-07-13] MEDS: TRIMETH IV SCH (18:44)
[2018-07-13] MEDS: FAMOTIDINE 20 MG TABLET PO SCH (20:47)
[2018-07-13] MEDS: MULTIVITAMIN (BEROCCA) TABLET PO SCH (20:47)
[2018-07-13] MEDS: CETIRIZINE 10 MG TABLET PO SCH (20:47)
[2018-07-13] MEDS: FOLIC ACID 1 MG TABLET PO SCH (20:47)
[2018-07-13] MEDS: SERTRALINE 25 MG TABLET PO SCH (20:47)
[2018-07-13] MEDS: FLUTICASONE 50 MCG NASAL SPRAY 16 GM BOTTLE BOTH NARES SCH (20:47)
[2018-07-13] MEDS ORDERED: VANCOMYCIN INJ 500 MG in SODIUM CHLORIDE 0.9% 100 ML IV ONE (21:00)
[2018-07-14] MEDS: PIPERACILLIN/TAZOBACTAM 3,375 MG in SODIUM CHLORIDE 0.9% 100 ML IV SCH ×2 (01:34→12:32)
[2018-07-14 06:14] LABS: Basophils % 0.1 % (0.0-0.8); Eosinophils # 0.1 10*3/uL (0.0-0.87); Eosinophils % 0.7 % (0.00-10.9); Hematocrit 22.5 VOL% (35.7-47.0); Hemoglobin 7.2 GM/DL (12.0-16.0); Immature Granulocytes Absolute 0.33 #; Lymphocytes # 3.2 10*3/uL (1.4-4.0); Lymphocytes % 19.9 % (21.3-54.2); Mean Corpuscular Hemoglobin 33 PG (27-34); Mean Corpuscular Volume 102.7 FL (87-102); Mean Platelet Volume 9.9 FL (9.6-12.0); Monocytes # 1.1 10*3/uL (0.11-0.8); Monocytes % 6.7 % (1.7-12.7); NRBC # 0.04 10*3/uL; Neutrophils # 11.4 10*3/uL (1.4-7.4); Neutrophils % 70.6 % (38.7-73.9); Platelet Count 225 T/CUMM (130-400); Red Blood Count 2.19 MC/CUMM (3.8-5.5); Red Cell Distribution Width 17.2 % (9.3-17.3); White Blood Count 16.2 T/CUMM (4-12)
[2018-07-14 06:33] LABS: Albumin 1.3 G/DL (3.4-5.0); Bilirubin,Total 0.6 MG/DL (0.2-1.0); Calcium 8.6 MG/DL (8.5-10.1); Osmolality,Calculated 280.8 MOS/KG (273-304); Potassium 3.6 MMOL/L (3.5-5.1); Total Protein 4.4 G/DL (6.4-8.3)
[2018-07-14] MEDS: LACTOBACILLUS ACIDOPHILUS/BULGARICUS CAPLET PO SCH (08:05)
[2018-07-14] MEDS: FLUTICASONE 50 MCG NASAL SPRAY 16 GM BOTTLE BOTH NARES SCH ×2 (08:05→21:09)
[2018-07-14] MEDS: CETIRIZINE 10 MG TABLET PO SCH (08:05)
[2018-07-14] MEDS: PANTOPRAZOLE 40 MG TABLET PO SCH (08:05)
[2018-07-14] MEDS: predniSONE 5 MG TABLET PO SCH (08:05)
[2018-07-14] MEDS: MULTIVITAMIN (BEROCCA) TABLET PO SCH (08:05)
[2018-07-14] MEDS ORDERED: SODIUM CHLORIDE 0.9% 1,000 ML IV PRN (08:34)
[2018-07-14] MEDS ORDERED: ALBUMIN 25% 25 GM in PREMIX 1 EACH IV ONE (09:00)
[2018-07-14] MEDS: TRIMETH IV SCH (16:57)
[2018-07-14] MEDS: SULFAMETH IV SCH (16:57)
[2018-07-14] MEDS: DEXTROSE 5% IV SCH (16:57)
[2018-07-14] MEDS ORDERED: VANCOMYCIN INJ 500 MG in SODIUM CHLORIDE 0.9% 100 ML IV ONE (21:00)
[2018-07-14] MEDS: SERTRALINE 25 MG TABLET PO SCH (21:05)
[2018-07-14] MEDS: FAMOTIDINE 20 MG TABLET PO SCH (21:05)
[2018-07-14] MEDS: FOLIC ACID 1 MG TABLET PO SCH (21:06)
[2018-07-14] MEDS: ZALEPLON 5 MG CAPSULE PO PRN (21:07)
[2018-07-15] MEDS: PIPERACILLIN/TAZOBACTAM 3,375 MG in SODIUM CHLORIDE 0.9% 100 ML IV SCH ×2 (00:59→13:01)
[2018-07-15 06:22] LABS: Calcium 8.7 MG/DL (8.5-10.1); Osmolality,Calculated 277.4 MOS/KG (273-304); Potassium 3.5 MMOL/L (3.5-5.1)
[2018-07-15 06:27] LABS: Basophils % 0.2 % (0.0-0.8); Eosinophils # 0.1 10*3/uL (0.0-0.87); Eosinophils % 0.4 % (0.00-10.9); Hematocrit 27.8 VOL% (35.7-47.0); Immature Granulocytes Absolute 0.41 #; Lymphocytes # 3.1 10*3/uL (1.4-4.0); Lymphocytes % 22.8 % (21.3-54.2); Mean Corpuscular HGB Conc 33.8 GM/DL (32-36); Mean Corpuscular Hemoglobin 32 PG (27-34); Mean Corpuscular Volume 95.5 FL (87-102); Mean Platelet Volume 10.1 FL (9.6-12.0); Monocytes # 1.3 10*3/uL (0.11-0.8); Monocytes % 9.5 % (1.7-12.7); NRBC # 0.02 10*3/uL; Neutrophils # 8.8 10*3/uL (1.4-7.4); Neutrophils % 64.1 % (38.7-73.9); Platelet Count 205 T/CUMM (130-400); Red Cell Distribution Width 16.1 % (9.3-17.3); White Blood Count 13.7 T/CUMM (4-12)
[2018-07-15 06:31] LABS: Red Blood Count 2.91 MC/CUMM (3.8-5.5)
[2018-07-15 06:32] LABS: Hemoglobin 9.4 GM/DL (12.0-16.0)
[2018-07-15] MEDS ORDERED: predniSONE 10 MG TABLET ONE (08:00)
[2018-07-15] MEDS: CETIRIZINE 10 MG TABLET PO SCH (08:04)
[2018-07-15] MEDS: MULTIVITAMIN (BEROCCA) TABLET PO SCH (08:05)
[2018-07-15] MEDS: LACTOBACILLUS ACIDOPHILUS/BULGARICUS CAPLET PO SCH (08:05)
[2018-07-15] MEDS: PANTOPRAZOLE 40 MG TABLET PO SCH (08:05)
[2018-07-15] MEDS: predniSONE 5 MG TABLET PO SCH (08:05)
[2018-07-15] MEDS: FLUTICASONE 50 MCG NASAL SPRAY 16 GM BOTTLE BOTH NARES SCH ×2 (08:06→20:46)
[2018-07-15] MEDS: CARVEDILOL 3.125 MG TABLET PO SCH ×2 (08:38→20:45)
[2018-07-15] MEDS ORDERED: ALBUMIN 25% 25 GM in PREMIX 1 EACH IV ONE (08:41)
[2018-07-15 09:30] LABS: % Iron Saturation 39.4 % (18-50)
[2018-07-15] MEDS: HEPARIN 5,000 UNIT/1 ML VIAL SUBCUT SCH (17:10)
[2018-07-15] MEDS: TRIMETH IV SCH (17:17)
[2018-07-15] MEDS: SULFAMETH IV SCH (17:17)
[2018-07-15] MEDS: DEXTROSE 5% IV SCH (17:17)
[2018-07-15] MEDS: FAMOTIDINE 20 MG TABLET PO SCH (20:45)
[2018-07-15] MEDS: MELATONIN 3 MG TABLET PO PRN (20:45)
[2018-07-15] MEDS: FOLIC ACID 1 MG TABLET PO SCH (20:45)
[2018-07-15] MEDS: SERTRALINE 25 MG TABLET PO SCH (20:45)
[2018-07-15] MEDS: ZALEPLON 5 MG CAPSULE PO PRN (23:40)
[2018-07-16] MEDS: PIPERACILLIN/TAZOBACTAM 3,375 MG in SODIUM CHLORIDE 0.9% 100 ML IV SCH (00:02)
[2018-07-16] MEDS: HEPARIN 5,000 UNIT/1 ML VIAL SUBCUT SCH ×3 (00:02→17:29)
[2018-07-16] MEDS ORDERED: diphenhydrAMINE 50 MG/1 ML VIAL IV ONE (02:17)
[2018-07-16 04:41] LABS: Basophils % 0.2 % (0.0-0.8); Eosinophils % 0.3 % (0.00-10.9); Hematocrit 28.7 VOL% (35.7-47.0); Hemoglobin 9.8 GM/DL (12.0-16.0); Immature Granulocytes % 2.8 %; Immature Granulocytes Absolute 0.33 #; Lymphocytes # 2.9 10*3/uL (1.4-4.0); Lymphocytes % 24.7 % (21.3-54.2); Mean Corpuscular HGB Conc 34.1 GM/DL (32-36); Mean Corpuscular Hemoglobin 32 PG (27-34); Mean Corpuscular Volume 94.4 FL (87-102); Monocytes # 1.5 10*3/uL (0.11-0.8); Monocytes % 12.5 % (1.7-12.7); NRBC # 0.02 10*3/uL; Neutrophils # 6.9 10*3/uL (1.4-7.4); Neutrophils % 59.5 % (38.7-73.9); Platelet Count 222 T/CUMM (130-400); Red Blood Count 3.04 MC/CUMM (3.8-5.5); Red Cell Distribution Width 15.9 % (9.3-17.3); White Blood Count 11.7 T/CUMM (4-12)
[2018-07-16 05:06] LABS: Calcium 9.3 MG/DL (8.5-10.1); Osmolality,Calculated 279.5 MOS/KG (273-304); Potassium 3.5 MMOL/L (3.5-5.1)
[2018-07-16] MEDS ORDERED: EPOETIN ALFA 2,000 UNIT/1 ML VIAL IV PRN (08:47)
[2018-07-16] MEDS: predniSONE 5 MG TABLET PO SCH (09:00)
[2018-07-16] MEDS ORDERED: ALBUMIN 25% 25 GM in PREMIX 1 EACH IV PRN (09:51)
[2018-07-16] MEDS ORDERED: ZALEPLON 5 MG CAPSULE PO PRN (09:59)
[2018-07-16] MEDS: FLUTICASONE 50 MCG NASAL SPRAY 16 GM BOTTLE BOTH NARES SCH ×2 (12:00→20:56)
[2018-07-16] MEDS: LACTOBACILLUS ACIDOPHILUS/BULGARICUS CAPLET PO SCH (12:05)
[2018-07-16] MEDS: CETIRIZINE 10 MG TABLET PO SCH (12:06)
[2018-07-16] MEDS: CARVEDILOL 3.125 MG TABLET PO SCH ×2 (12:06→20:56)
[2018-07-16] MEDS: PANTOPRAZOLE 40 MG TABLET PO SCH (12:06)
[2018-07-16] MEDS: MULTIVITAMIN (BEROCCA) TABLET PO SCH (12:06)
[2018-07-16] MEDS ORDERED: ALBUTEROL/IPRATROPIUM 3 ML NEB RESP TX ONE (13:43)
[2018-07-16] MEDS ORDERED: cefTAZidime 1,000 MG in SYRINGE 1 EACH IV SCH (17:00)
[2018-07-16] MEDS: ALBUTEROL/IPRATROPIUM 3 ML NEB RESP TX SCH (19:09)
[2018-07-16] MEDS ORDERED: traZODone 50 MG TABLET PO ONE (19:26)
[2018-07-16] MEDS: SERTRALINE 25 MG TABLET PO SCH (20:56)
[2018-07-16] MEDS: FOLIC ACID 1 MG TABLET PO SCH (20:56)
[2018-07-16] MEDS: FAMOTIDINE 20 MG TABLET PO SCH (20:56)
[2018-07-16] MEDS: MIRTAZAPINE 15 MG TABLET PO SCH (20:56)
[2018-07-17] MEDS: ALBUTEROL/IPRATROPIUM 3 ML NEB RESP TX SCH ×4 (00:37→19:51)
[2018-07-17] MEDS: HEPARIN 5,000 UNIT/1 ML VIAL SUBCUT SCH ×3 (01:20→17:40)
[2018-07-17 05:02] LABS: Basophils # 0.1 10*3/uL (0.0-0.2); Basophils % 0.7 % (0.0-0.8); Eosinophils # 0.1 10*3/uL (0.0-0.87); Eosinophils % 0.7 % (0.00-10.9); Hematocrit 33.3 VOL% (35.7-47.0); Hemoglobin 11.1 GM/DL (12.0-16.0); Lymphocytes # 2.7 10*3/uL (1.4-4.0); Lymphocytes % 22.4 % (21.3-54.2); Mean Corpuscular HGB Conc 33.3 GM/DL (32-36); Mean Corpuscular Hemoglobin 32 PG (27-34); Mean Corpuscular Volume 96.2 FL (87-102); Mean Platelet Volume 9.6 FL (9.6-12.0); Monocytes # 1.7 10*3/uL (0.11-0.8); Monocytes % 14.1 % (1.7-12.7); NRBC # 0.07 10*3/uL; Neutrophils # 6.5 10*3/uL (1.4-7.4); Neutrophils % 53.1 % (38.7-73.9); Platelet Count 223 T/CUMM (130-400); Red Blood Count 3.46 MC/CUMM (3.8-5.5); Red Cell Distribution Width 16.2 % (9.3-17.3); White Blood Count 12.2 T/CUMM (4-12)
[2018-07-17 05:22] LABS: Calcium 8.8 MG/DL (8.5-10.1); Osmolality,Calculated 271.1 MOS/KG (273-304); Potassium 3.3 MMOL/L (3.5-5.1)
[2018-07-17 06:08] LABS: Band Neutrophils 1 % (0-10); Eosinophils 3 % (0-10); Hypochromasia 2+; Lymphocytes 26 % (20-55); Nucleated Red Blood Cells 1 (0-5); Platelet Estimate Normal; Polychromasia 1+; Segmented Neutrophils 64 % (50-85); Total Cells Counted 100
[2018-07-17] MEDS: predniSONE 5 MG TABLET PO SCH (09:36)
[2018-07-17] MEDS: MULTIVITAMIN (BEROCCA) TABLET PO SCH (09:36)
[2018-07-17] MEDS: LACTOBACILLUS ACIDOPHILUS/BULGARICUS CAPLET PO SCH (09:36)
[2018-07-17] MEDS: CETIRIZINE 10 MG TABLET PO SCH (09:36)
[2018-07-17] MEDS: PANTOPRAZOLE 40 MG TABLET PO SCH (09:37)
[2018-07-17] MEDS: CARVEDILOL 3.125 MG TABLET PO SCH (09:37)
[2018-07-17] MEDS: FLUTICASONE 50 MCG NASAL SPRAY 16 GM BOTTLE BOTH NARES SCH ×2 (09:37→21:06)
[2018-07-17] MEDS ORDERED: ZIPRASIDONE 20 MG/1 ML VIAL IM ONE (09:51)
[2018-07-17] MEDS ORDERED: PIPERACILLIN/TAZOBACTAM 3,375 MG in SODIUM CHLORIDE 0.9% 100 ML IV SCH (16:00)
[2018-07-17] MEDS: MEROPENEM 500 MG in SODIUM CHLORIDE 0.9% 100 ML IV SCH (17:41)
[2018-07-17] MEDS: FAMOTIDINE 20 MG TABLET PO SCH (21:02)
[2018-07-17] MEDS: MIRTAZAPINE 15 MG TABLET PO SCH (21:03)
[2018-07-17] MEDS: FOLIC ACID 1 MG TABLET PO SCH (21:03)
[2018-07-17] MEDS: SERTRALINE 25 MG TABLET PO SCH (21:03)
[2018-07-17] MEDS: CARVEDILOL 6.25 MG TABLET PO SCH (21:03)
[2018-07-18] MEDS: ALBUTEROL/IPRATROPIUM 3 ML NEB RESP TX SCH ×4 (01:11→19:34)
[2018-07-18] MEDS: HEPARIN 5,000 UNIT/1 ML VIAL SUBCUT SCH ×3 (01:22→16:04)
[2018-07-18] MEDS ORDERED: cloNIDine 0.1 MG TABLET PO PRN (01:30)
[2018-07-18 05:30] LABS: Basophils # 0.1 10*3/uL (0.0-0.2); Basophils % 0.4 % (0.0-0.8); Eosinophils # 0.3 10*3/uL (0.0-0.87); Eosinophils % 1.9 % (0.00-10.9); Hemoglobin 10.8 GM/DL (12.0-16.0); Immature Granulocytes Absolute 0.98 #; Lymphocytes # 3.1 10*3/uL (1.4-4.0); Lymphocytes % 22.5 % (21.3-54.2); Mean Corpuscular HGB Conc 32.7 GM/DL (32-36); Mean Corpuscular Hemoglobin 32 PG (27-34); Mean Corpuscular Volume 97.3 FL (87-102); Mean Platelet Volume 9.8 FL (9.6-12.0); Monocytes # 1.6 10*3/uL (0.11-0.8); Monocytes % 11.1 % (1.7-12.7); Neutrophils % 57.1 % (38.7-73.9); Platelet Count 227 T/CUMM (130-400); Red Blood Count 3.39 MC/CUMM (3.8-5.5); Red Cell Distribution Width 16.1 % (9.3-17.3); White Blood Count 13.9 T/CUMM (4-12)
[2018-07-18 05:47] LABS: Calcium 9.3 MG/DL (8.5-10.1); Osmolality,Calculated 276.1 MOS/KG (273-304); Potassium 3.6 MMOL/L (3.5-5.1)
[2018-07-18 06:08] LABS: Eosinophils 1 % (0-10); Lymphocytes 24 % (20-55); Nucleated Red Blood Cells 1 (0-5); Platelet Estimate Normal; Polychromasia Few; Segmented Neutrophils 64 % (50-85); Total Cells Counted 100
[2018-07-18] MEDS: LACTOBACILLUS ACIDOPHILUS/BULGARICUS CAPLET PO SCH (08:42)
[2018-07-18] MEDS: MULTIVITAMIN (BEROCCA) TABLET PO SCH (08:43)
[2018-07-18] MEDS: predniSONE 5 MG TABLET PO SCH (08:43)
[2018-07-18] MEDS: PANTOPRAZOLE 40 MG TABLET PO SCH (08:43)
[2018-07-18] MEDS: CETIRIZINE 10 MG TABLET PO SCH (08:43)
[2018-07-18] MEDS: CARVEDILOL 6.25 MG TABLET PO SCH ×2 (08:43→21:23)
[2018-07-18] MEDS: FLUTICASONE 50 MCG NASAL SPRAY 16 GM BOTTLE BOTH NARES SCH ×2 (08:44→21:23)
[2018-07-18 09:45] LABS: Albumin 1.9 G/DL (3.4-5.0); Total Protein 4.4 G/DL (6.4-8.3)
[2018-07-18] MEDS: MEROPENEM 500 MG in SODIUM CHLORIDE 0.9% 100 ML IV SCH (16:05)
[2018-07-18] MEDS: FOLIC ACID 1 MG TABLET PO SCH (21:22)
[2018-07-18] MEDS: MIRTAZAPINE 15 MG TABLET PO SCH (21:22)
[2018-07-18] MEDS: FAMOTIDINE 20 MG TABLET PO SCH (21:23)
[2018-07-18] MEDS: SERTRALINE 25 MG TABLET PO SCH (21:23)
[2018-07-19] MEDS: MELATONIN 3 MG TABLET PO PRN (00:20)
[2018-07-19] MEDS: HEPARIN 5,000 UNIT/1 ML VIAL SUBCUT SCH ×3 (00:21→16:36)
[2018-07-19] MEDS: ALBUTEROL/IPRATROPIUM 3 ML NEB RESP TX SCH ×3 (00:36→12:18)
[2018-07-19 05:26] LABS: Basophils # 0.1 10*3/uL (0.0-0.2); Basophils % 0.5 % (0.0-0.8); Eosinophils # 0.3 10*3/uL (0.0-0.87); Eosinophils % 1.9 % (0.00-10.9); Hematocrit 34.1 VOL% (35.7-47.0); Hemoglobin 11.3 GM/DL (12.0-16.0); Immature Granulocytes % 5.9 %; Immature Granulocytes Absolute 0.85 #; Lymphocytes # 3.4 10*3/uL (1.4-4.0); Lymphocytes % 23.6 % (21.3-54.2); Mean Corpuscular HGB Conc 33.1 GM/DL (32-36); Mean Corpuscular Hemoglobin 32 PG (27-34); Mean Corpuscular Volume 97.2 FL (87-102); Mean Platelet Volume 10.2 FL (9.6-12.0); Monocytes # 1.6 10*3/uL (0.11-0.8); NRBC # 0.05 10*3/uL; Neutrophils # 8.2 10*3/uL (1.4-7.4); Neutrophils % 57.1 % (38.7-73.9); Platelet Count 255 T/CUMM (130-400); Red Blood Count 3.51 MC/CUMM (3.8-5.5); Red Cell Distribution Width 15.8 % (9.3-17.3); White Blood Count 14.4 T/CUMM (4-12)
[2018-07-19 05:47] LABS: Albumin 1.9 G/DL (3.4-5.0); Calcium 9.8 MG/DL (8.5-10.1); Osmolality,Calculated 280.2 MOS/KG (273-304); Potassium 3.6 MMOL/L (3.5-5.1); Total Protein 5.3 G/DL (6.4-8.3)
[2018-07-19 05:49] LABS: Band Neutrophils 2 % (0-10); Hypochromasia 1+; Lymphocytes 15 % (20-55); Nucleated Red Blood Cells 1 (0-5); Ovalocytes Slight; Platelet Estimate Adequate; Segmented Neutrophils 71 % (50-85); Total Cells Counted 100
[2018-07-19] MEDS ORDERED: PIPERACILLIN/TAZOBACTAM 3,375 MG in SODIUM CHLORIDE 0.9% 100 ML IV SCH (09:00)
[2018-07-19] MEDS: LACTOBACILLUS ACIDOPHILUS/BULGARICUS CAPLET PO SCH (16:06)
[2018-07-19] MEDS: MULTIVITAMIN (BEROCCA) TABLET PO SCH (16:06)
[2018-07-19] MEDS: CARVEDILOL 6.25 MG TABLET PO SCH (16:06)
[2018-07-19] MEDS: FLUTICASONE 50 MCG NASAL SPRAY 16 GM BOTTLE BOTH NARES SCH (16:07)
[2018-07-19] MEDS: CETIRIZINE 10 MG TABLET PO SCH (16:07)
[2018-07-19] MEDS: PANTOPRAZOLE 40 MG TABLET PO SCH (16:07)
[2018-07-19] MEDS: predniSONE 5 MG TABLET PO SCH (16:07)
[2018-07-19 16:13] VITALS: BP 136/68
== END 2018-07-19 16:40 | disposition hospice, home (50) | DRG 871 ==
LOC: EDUNIT# → N.ED 11:08 → N.EDINP 14:18 → SUATTDRO 14:18 → N.ICU 17:25 → N.2E 07-15 14:05
PROVIDERS: ADMIT Internal Medicine; ATTEND Internal Medicine

== ENCOUNTER 2019-08-14 05:22 | Inpatient (IN) ==
[2019-08-14 05:54] LABS: Basophils % 0.3 % (0.0-0.8); Eosinophils % 0.3 % (0.00-10.9); Hemoglobin 10.3 GM/DL (12.0-16.0); Immature Granulocytes % 5.2 %; Immature Granulocytes Absolute 0.16 #; Lymphocytes # 1.7 10*3/uL (1.4-4.0); Lymphocytes % 56.4 % (21.3-54.2); Mean Corpuscular HGB Conc 32.2 GM/DL (32-36); Mean Corpuscular Volume 96.4 FL (87-102); Monocytes % 15.1 % (1.7-12.7); Neutrophils % 22.7 % (38.7-73.9); Platelet Count 134 T/CUMM (130-400); Red Blood Count 3.32 MC/CUMM (3.8-5.5); Red Cell Distribution Width 17.8 % (9.3-17.3); White Blood Count 3.1 T/CUMM (4-12)
[2019-08-14] MEDS ORDERED: HEPARIN LOCK FLUSH 500 UNIT/5 ML SYRINGE IV ONE (06:01)
[2019-08-14 06:07] LABS: Albumin 2.3 G/DL (3.4-5.0); Bilirubin,Total 0.8 MG/DL (0.2-1.0); Calcium 9.4 MG/DL (8.5-10.1); Osmolality,Calculated 281.1 MOS/KG (273-304); Total Protein 5.3 G/DL (6.4-8.3)
[2019-08-14 07:31] LABS: Band Neutrophils 2 % (0-10); Eosinophils 2 % (0-10); Lymphocytes 54 % (20-55); Platelet Estimate Decreased; Segmented Neutrophils 25 % (50-85); Total Cells Counted 100
[2019-08-14 07:32] LABS: Anisocytosis 1+; Atypical Lymphocytes Few; Macrocytosis 1+; Reactive Lymphocytes 2+
[2019-08-14] MEDS ORDERED: ONDANSETRON 4 MG/2 ML VIAL IV PRN (08:47)
[2019-08-14] MEDS ORDERED: ALBUTEROL 2.5 MG/3 ML NEB RESP TX PRN (08:47)
[2019-08-14] MEDS ORDERED: DOCUSATE SODIUM 100 MG CAPSULE PO PRN (08:47)
[2019-08-14] MEDS ORDERED: BISACODYL 5 MG TABLET PO PRN (08:47)
[2019-08-14] MEDS ORDERED: ACETAMINOPHEN 325 MG TABLET PO PRN (08:47)
[2019-08-14] MEDS ORDERED: hydrALAZINE 20 MG/1 ML VIAL IV PRN (08:47)
[2019-08-14] MEDS ORDERED: ALUMINUM/MAGNES/SIMETH MAX STR 30 ML UDCUP PO PRN (08:57)
[2019-08-14] MEDS ORDERED: POLYETHYLENE GLYCOL POWDER 17 GM PACK PO PRN (08:57)
[2019-08-14] MEDS ORDERED: LEVOFLOXACIN INJ 500 MG in PREMIX 1 EACH IV ONE (09:30)
[2019-08-14] MEDS: PANTOPRAZOLE 40 MG TABLET PO SCH (09:44)
[2019-08-14] MEDS: predniSONE 20 MG TABLET PO SCH (09:44)
[2019-08-14] MEDS: amLODIPine 5 MG TABLET PO SCH (09:44)
[2019-08-14 09:45] LABS: Thyroid Stimulating Hormone 2.31 uIU/ml (0.358-3.74)
[2019-08-14] MEDS: ASPIRIN EC 81 MG TABLET PO SCH (11:54)
[2019-08-14] MEDS: SEVELAMER CARBONATE 800 MG TABLET PO SCH ×2 (11:55→18:00)
[2019-08-14] MEDS: carvediloL 12.5 MG TABLET PO SCH ×2 (11:55→21:20)
[2019-08-14] MEDS: PIPERACILLIN/TAZOBACTAM 3,375 MG in SODIUM CHLORIDE 0.9% 100 ML IV SCH ×2 (11:55→22:53)
[2019-08-14] MEDS: ALBUTEROL/IPRATROPIUM 3 ML NEB RESP TX SCH ×2 (12:42→19:09)
[2019-08-14] MEDS ORDERED: VANCOMYCIN INJ 500 MG in SODIUM CHLORIDE 0.9% 100 ML IV PRN (13:13)
[2019-08-14] MEDS ORDERED: VANCOMYCIN INJ 1,250 MG in SODIUM CHLORIDE 0.9% 250 ML IV ONE (15:00)
[2019-08-15] MEDS: ALBUTEROL/IPRATROPIUM 3 ML NEB RESP TX SCH ×4 (00:42→19:49)
[2019-08-15 04:19] LABS: Basophils % 0.3 % (0.0-0.8); Hematocrit 24.7 VOL% (35.7-47.0); Immature Granulocytes % 1.4 %; Immature Granulocytes Absolute 0.05 #; Lymphocytes # 1.5 10*3/uL (1.4-4.0); Lymphocytes % 42.1 % (21.3-54.2); Mean Corpuscular HGB Conc 32.4 GM/DL (32-36); Mean Corpuscular Volume 95.7 FL (87-102); Mean Platelet Volume 10.7 FL (9.6-12.0); Neutrophils % 35.2 % (38.7-73.9); Platelet Count 100 T/CUMM (130-400); Red Blood Count 2.58 MC/CUMM (3.8-5.5); Red Cell Distribution Width 18.1 % (9.3-17.3); White Blood Count 3.5 T/CUMM (4-12)
[2019-08-15 04:42] LABS: Band Neutrophils 1 % (0-10); Lymphocytes 47 % (20-55); Nucleated Red Blood Cells 1 (0-5); Platelet Estimate Decreased; Segmented Neutrophils 36 % (50-85); Total Cells Counted 100
[2019-08-15 04:43] LABS: Atypical Lymphocytes Few; Hypochromasia 1+; Macrocytosis 1+; Ovalocytes Slight
[2019-08-15 04:53] LABS: Albumin 1.7 G/DL (3.4-5.0); Bilirubin,Total 0.6 MG/DL (0.2-1.0); Calcium 9.1 MG/DL (8.5-10.1); Osmolality,Calculated 289.8 MOS/KG (273-304); Total Protein 4.5 G/DL (6.4-8.3)
[2019-08-15 05:09] LABS: Risk Ratio 4.71
[2019-08-15] MEDS ORDERED: HEPARIN 10,000 UNIT/10 ML VIAL IV SCH (08:57)
[2019-08-15] MEDS: PIPERACILLIN/TAZOBACTAM 3,375 MG in SODIUM CHLORIDE 0.9% 100 ML IV SCH (10:29)
[2019-08-15] MEDS: ASPIRIN EC 81 MG TABLET PO SCH (10:37)
[2019-08-15] MEDS: amLODIPine 5 MG TABLET PO SCH (10:37)
[2019-08-15] MEDS: SEVELAMER CARBONATE 800 MG TABLET PO SCH ×3 (10:37→17:15)
[2019-08-15] MEDS: PANTOPRAZOLE 40 MG TABLET PO SCH (10:38)
[2019-08-15] MEDS: predniSONE 20 MG TABLET PO SCH (10:38)
[2019-08-15] MEDS: carvediloL 12.5 MG TABLET PO SCH ×2 (10:38→20:31)
[2019-08-16] MEDS: ALBUTEROL/IPRATROPIUM 3 ML NEB RESP TX SCH ×4 (00:08→19:30)
[2019-08-16] MEDS: PIPERACILLIN/TAZOBACTAM 3,375 MG in SODIUM CHLORIDE 0.9% 100 ML IV SCH ×3 (00:17→23:42)
[2019-08-16 05:07] LABS: Basophils % 0.3 % (0.0-0.8); Eosinophils % 0.3 % (0.00-10.9); Hematocrit 25.8 VOL% (35.7-47.0); Hemoglobin 8.6 GM/DL (12.0-16.0); Immature Granulocytes % 7.6 %; Immature Granulocytes Absolute 0.28 #; Lymphocytes # 1.5 10*3/uL (1.4-4.0); Lymphocytes % 39.7 % (21.3-54.2); Mean Corpuscular HGB Conc 33.3 GM/DL (32-36); Mean Corpuscular Volume 94.2 FL (87-102); Mean Platelet Volume 10.7 FL (9.6-12.0); Neutrophils % 32.1 % (38.7-73.9); Platelet Count 118 T/CUMM (130-400); Red Blood Count 2.74 MC/CUMM (3.8-5.5); Red Cell Distribution Width 18.1 % (9.3-17.3); White Blood Count 3.7 T/CUMM (4-12)
[2019-08-16 05:29] LABS: Albumin 1.9 G/DL (3.4-5.0); Bilirubin,Total 0.7 MG/DL (0.2-1.0); Calcium 8.9 MG/DL (8.5-10.1); Osmolality,Calculated 274.2 MOS/KG (273-304); Total Protein 4.8 G/DL (6.4-8.3)
[2019-08-16 05:32] LABS: Band Neutrophils 1 % (0-10); Eosinophils 1 % (0-10); Hypochromasia 1+; Lymphocytes 46 % (20-55); Platelet Estimate Decreased; Segmented Neutrophils 33 % (50-85); Total Cells Counted 100
[2019-08-16 05:33] LABS: Atypical Lymphocytes Few; Macrocytosis 1+; Ovalocytes Slight
[2019-08-16] MEDS ORDERED: LORazepam 0.5 MG TABLET PO PRN (07:28)
[2019-08-16] MEDS ORDERED: VANCOMYCIN INJ 500 MG in SODIUM CHLORIDE 0.9% 100 ML IV ONE (08:00)
[2019-08-16] MEDS: ASPIRIN EC 81 MG TABLET PO SCH (08:49)
[2019-08-16] MEDS: SEVELAMER CARBONATE 800 MG TABLET PO SCH ×3 (08:49→17:20)
[2019-08-16] MEDS: carvediloL 12.5 MG TABLET PO SCH ×2 (08:50→21:22)
[2019-08-16] MEDS: predniSONE 20 MG TABLET PO SCH (08:50)
[2019-08-16] MEDS: PANTOPRAZOLE 40 MG TABLET PO SCH (08:50)
[2019-08-16] MEDS: amLODIPine 5 MG TABLET PO SCH (08:50)
[2019-08-16] MEDS: LEVOFLOXACIN INJ 250 MG in PREMIX 1 EACH IV SCH (10:53)
[2019-08-16] MEDS: ZALEPLON 5 MG CAPSULE PO PRN (21:50)
[2019-08-17] MEDS: ALBUTEROL/IPRATROPIUM 3 ML NEB RESP TX SCH ×4 (01:16→19:57)
[2019-08-17 05:10] LABS: Basophils % 0.3 % (0.0-0.8); Hematocrit 25.7 VOL% (35.7-47.0); Hemoglobin 8.3 GM/DL (12.0-16.0); Immature Granulocytes % 4.2 %; Immature Granulocytes Absolute 0.16 #; Lymphocytes # 1.5 10*3/uL (1.4-4.0); Lymphocytes % 40.2 % (21.3-54.2); Mean Corpuscular HGB Conc 32.3 GM/DL (32-36); Mean Corpuscular Volume 95.9 FL (87-102); Mean Platelet Volume 10.9 FL (9.6-12.0); Monocytes % 17.6 % (1.7-12.7); Neutrophils % 37.7 % (38.7-73.9); Platelet Count 116 T/CUMM (130-400); Red Blood Count 2.68 MC/CUMM (3.8-5.5); Red Cell Distribution Width 17.9 % (9.3-17.3); White Blood Count 3.8 T/CUMM (4-12)
[2019-08-17 05:33] LABS: Albumin 2.1 G/DL (3.4-5.0); Calcium 8.8 MG/DL (8.5-10.1); Osmolality,Calculated 286.2 MOS/KG (273-304)
[2019-08-17 05:49] LABS: Band Neutrophils 1 % (0-10); Lymphocytes 39 % (20-55); Segmented Neutrophils 41 % (50-85); Total Cells Counted 100
[2019-08-17 05:50] LABS: Atypical Lymphocytes Few; Hypochromasia 1+; Macrocytosis Slight; Ovalocytes Slight; Platelet Estimate Decreased
[2019-08-17] MEDS: SEVELAMER CARBONATE 800 MG TABLET PO SCH ×3 (08:37→16:57)
[2019-08-17] MEDS: predniSONE 20 MG TABLET PO SCH (08:37)
[2019-08-17] MEDS: ASPIRIN EC 81 MG TABLET PO SCH (08:37)
[2019-08-17] MEDS: PANTOPRAZOLE 40 MG TABLET PO SCH (08:37)
[2019-08-17] MEDS: carvediloL 12.5 MG TABLET PO SCH ×2 (08:37→20:09)
[2019-08-17] MEDS: amLODIPine 5 MG TABLET PO SCH (08:37)
[2019-08-17] MEDS: PIPERACILLIN/TAZOBACTAM 3,375 MG in SODIUM CHLORIDE 0.9% 100 ML IV SCH ×2 (11:49→22:17)
[2019-08-17] MEDS: ZALEPLON 5 MG CAPSULE PO PRN (20:09)
[2019-08-18] MEDS: ALBUTEROL/IPRATROPIUM 3 ML NEB RESP TX SCH ×4 (01:31→19:54)
[2019-08-18 06:20] LABS: Basophils % 0.2 % (0.0-0.8); Eosinophils % 0.4 % (0.00-10.9); Hematocrit 26.1 VOL% (35.7-47.0); Hemoglobin 8.4 GM/DL (12.0-16.0); Immature Granulocytes % 6.2 %; Immature Granulocytes Absolute 0.28 #; Lymphocytes # 1.6 10*3/uL (1.4-4.0); Lymphocytes % 36.1 % (21.3-54.2); Mean Corpuscular HGB Conc 32.2 GM/DL (32-36); Mean Corpuscular Volume 96.7 FL (87-102); Mean Platelet Volume 9.7 FL (9.6-12.0); Monocytes % 22.6 % (1.7-12.7); Neutrophils % 34.5 % (38.7-73.9); Platelet Count 117 T/CUMM (130-400); White Blood Count 4.5 T/CUMM (4-12)
[2019-08-18 06:35] LABS: Calcium 8.9 MG/DL (8.5-10.1); Osmolality,Calculated 279.8 MOS/KG (273-304)
[2019-08-18 07:17] LABS: Band Neutrophils 2 % (0-10); Lymphocytes 42 % (20-55); Segmented Neutrophils 36 % (50-85); Total Cells Counted 100
[2019-08-18 07:18] LABS: Macrocytosis 1+; Ovalocytes Slight; Platelet Estimate Decreased; Tear Drop Cells Slight
[2019-08-18] MEDS: PANTOPRAZOLE 40 MG TABLET PO SCH (08:50)
[2019-08-18] MEDS: ASPIRIN EC 81 MG TABLET PO SCH (08:50)
[2019-08-18] MEDS: LEVOFLOXACIN INJ 250 MG in PREMIX 1 EACH IV SCH (08:50)
[2019-08-18] MEDS: carvediloL 12.5 MG TABLET PO SCH ×2 (08:50→20:59)
[2019-08-18] MEDS: SEVELAMER CARBONATE 800 MG TABLET PO SCH ×3 (08:50→16:50)
[2019-08-18] MEDS: amLODIPine 5 MG TABLET PO SCH (08:50)
[2019-08-18] MEDS: predniSONE 20 MG TABLET PO SCH (08:50)
[2019-08-18] MEDS ORDERED: VANCOMYCIN INJ 500 MG in SODIUM CHLORIDE 0.9% 100 ML IV ONE (10:00)
[2019-08-18] MEDS: PIPERACILLIN/TAZOBACTAM 3,375 MG in SODIUM CHLORIDE 0.9% 100 ML IV SCH (10:45)
[2019-08-18] MEDS: ZALEPLON 5 MG CAPSULE PO PRN (20:59)
[2019-08-19] MEDS: ALBUTEROL/IPRATROPIUM 3 ML NEB RESP TX SCH ×4 (00:20→20:16)
[2019-08-19] MEDS: PIPERACILLIN/TAZOBACTAM 3,375 MG in SODIUM CHLORIDE 0.9% 100 ML IV SCH ×2 (00:26→12:12)
[2019-08-19 04:40] LABS: Basophils % 0.3 % (0.0-0.8); Eosinophils % 0.2 % (0.00-10.9); Hematocrit 24.8 VOL% (35.7-47.0); Hemoglobin 8.1 GM/DL (12.0-16.0); Immature Granulocytes Absolute 0.24 #; Lymphocytes # 2.6 10*3/uL (1.4-4.0); Lymphocytes % 43.1 % (21.3-54.2); Mean Corpuscular HGB Conc 32.7 GM/DL (32-36); Mean Corpuscular Volume 94.3 FL (87-102); Mean Platelet Volume 10.2 FL (9.6-12.0); Monocytes % 16.6 % (1.7-12.7); Neutrophils % 35.8 % (38.7-73.9); Platelet Count 122 T/CUMM (130-400); Red Blood Count 2.63 MC/CUMM (3.8-5.5); Red Cell Distribution Width 17.6 % (9.3-17.3)
[2019-08-19 05:01] LABS: Albumin 1.9 G/DL (3.4-5.0); Bilirubin,Total 1.1 MG/DL (0.2-1.0); Calcium 8.6 MG/DL (8.5-10.1); Total Protein 4.9 G/DL (6.4-8.3)
[2019-08-19 05:04] LABS: Hypochromasia 1+; Lymphocytes 43 % (20-55); Ovalocytes Slight; Platelet Estimate Decreased; Segmented Neutrophils 42 % (50-85); Total Cells Counted 100
[2019-08-19 05:05] LABS: Atypical Lymphocytes Few; Macrocytosis Slight
[2019-08-19] MEDS: carvediloL 12.5 MG TABLET PO SCH ×2 (09:27→21:03)
[2019-08-19] MEDS: SEVELAMER CARBONATE 800 MG TABLET PO SCH ×4 (09:27→17:21)
[2019-08-19] MEDS: predniSONE 20 MG TABLET PO SCH (09:27)
[2019-08-19] MEDS: ASPIRIN EC 81 MG TABLET PO SCH (09:27)
[2019-08-19] MEDS: PANTOPRAZOLE 40 MG TABLET PO SCH (09:27)
[2019-08-19] MEDS: amLODIPine 5 MG TABLET PO SCH (09:27)
[2019-08-19] MEDS ORDERED: ONDANSETRON 4 MG TABLET PO PRN (12:19)
[2019-08-19] MEDS: traZODone 50 MG TABLET PO SCH (21:03)
[2019-08-20] MEDS: PIPERACILLIN/TAZOBACTAM 3,375 MG in SODIUM CHLORIDE 0.9% 100 ML IV SCH ×2 (00:27→13:07)
[2019-08-20] MEDS: ALBUTEROL/IPRATROPIUM 3 ML NEB RESP TX SCH ×4 (01:22→19:58)
[2019-08-20 04:51] LABS: Basophils % 0.2 % (0.0-0.8); Eosinophils % 0.3 % (0.00-10.9); Hematocrit 25.5 VOL% (35.7-47.0); Hemoglobin 7.9 GM/DL (12.0-16.0); Immature Granulocytes % 5.5 %; Immature Granulocytes Absolute 0.35 #; Lymphocytes # 2.5 10*3/uL (1.4-4.0); Lymphocytes % 38.7 % (21.3-54.2); Mean Corpuscular Volume 98.1 FL (87-102); Mean Platelet Volume 10.1 FL (9.6-12.0); Neutrophils % 41.3 % (38.7-73.9); Platelet Count 136 T/CUMM (130-400); Red Cell Distribution Width 17.6 % (9.3-17.3); White Blood Count 6.4 T/CUMM (4-12)
[2019-08-20 05:10] LABS: Calcium 8.8 MG/DL (8.5-10.1); Osmolality,Calculated 280.8 MOS/KG (273-304)
[2019-08-20 06:37] LABS: Band Neutrophils 5 % (0-10); Lymphocytes 38 % (20-55); Myelocytes 2 %; Segmented Neutrophils 41 % (50-85); Total Cells Counted 100
[2019-08-20 06:38] LABS: Anisocytosis 1+; Ovalocytes Few; Platelet Estimate Normal; Tear Drop Cells 1+
[2019-08-20] MEDS: SEVELAMER CARBONATE 800 MG TABLET PO SCH ×3 (10:32→17:22)
[2019-08-20] MEDS: predniSONE 20 MG TABLET PO SCH (10:32)
[2019-08-20] MEDS: amLODIPine 5 MG TABLET PO SCH (10:32)
[2019-08-20] MEDS: ASPIRIN EC 81 MG TABLET PO SCH (10:33)
[2019-08-20] MEDS: carvediloL 12.5 MG TABLET PO SCH (10:33)
[2019-08-20] MEDS: LEVOFLOXACIN INJ 250 MG in PREMIX 1 EACH IV SCH (10:33)
[2019-08-20] MEDS: PANTOPRAZOLE 40 MG TABLET PO SCH (10:33)
[2019-08-21] MEDS: PIPERACILLIN/TAZOBACTAM 3,375 MG in SODIUM CHLORIDE 0.9% 100 ML IV SCH ×2 (00:07→10:11)
[2019-08-21] MEDS: carvediloL 12.5 MG TABLET PO SCH ×2 (00:07→09:59)
[2019-08-21] MEDS: traZODone 50 MG TABLET PO SCH (00:07)
[2019-08-21] MEDS: ALBUTEROL/IPRATROPIUM 3 ML NEB RESP TX SCH ×3 (01:15→13:30)
[2019-08-21 05:28] LABS: Basophils % 0.2 % (0.0-0.8); Hematocrit 23.6 VOL% (35.7-47.0); Hemoglobin 7.4 GM/DL (12.0-16.0); Immature Granulocytes % 4.7 %; Immature Granulocytes Absolute 0.31 #; Lymphocytes # 2.3 10*3/uL (1.4-4.0); Mean Corpuscular HGB Conc 31.4 GM/DL (32-36); Mean Corpuscular Volume 97.5 FL (87-102); Mean Platelet Volume 10.3 FL (9.6-12.0); Monocytes % 9.7 % (1.7-12.7); Neutrophils % 50.4 % (38.7-73.9); Platelet Count 173 T/CUMM (130-400); Red Blood Count 2.42 MC/CUMM (3.8-5.5); Red Cell Distribution Width 17.4 % (9.3-17.3); White Blood Count 6.6 T/CUMM (4-12)
[2019-08-21 05:58] LABS: Calcium 8.7 MG/DL (8.5-10.1); Osmolality,Calculated 289.8 MOS/KG (273-304)
[2019-08-21] MEDS: ASPIRIN EC 81 MG TABLET PO SCH (09:59)
[2019-08-21] MEDS: amLODIPine 5 MG TABLET PO SCH (09:59)
[2019-08-21] MEDS: predniSONE 20 MG TABLET PO SCH (09:59)
[2019-08-21] MEDS: SEVELAMER CARBONATE 800 MG TABLET PO SCH ×2 (09:59→11:27)
[2019-08-21] MEDS: PANTOPRAZOLE 40 MG TABLET PO SCH (10:00)
[2019-08-21 11:47] VITALS: BP 152/73
== END 2019-08-21 14:13 | DRG 871 ==
LOC: EDBD → EDUNIT# → N.ED 05:22 → N.EDINP 08:47 → SUATTDRO 08:47 → N.ICU 09:37 → N.TELES 08-18 15:05
PROVIDERS: ADMIT Internal Medicine; ATTEND Internal Medicine